=== PATIENT | male | born 1950 | race Caucasian/White ===

== ENCOUNTER → 2017-08-23 | Outpatient (CLI) | payer MEDICARE ==
[2017-08-23 11:16] LABS: Anion Gap 13 mmol/L; Blood Urea Nitrogen 17 mg/dL (9-20); Carbon Dioxide 26 mmol/L (22-30); Chloride 103 mmol/L (98-107); Potassium 5.1 mmol/L (3.5-5.1); Sodium 142 mmol/L (137-145)
[2017-08-23 11:34] LABS: HGB 13.6 gm/dL (13.0-17.5); MCH 32.6 pg (25.0-35.0); MCV 95.9 fL (80.0-100.0); Mean Platelet Volume 7.1; Platelet Count 221 k/uL (150-450); RBC 4.17 m/uL (4.30-5.90); RDW 14.2 % (11.5-15.5); WBC 8.1 k/uL (3.8-10.6)
== END | disposition home or self-care (01) ==
LOC: LABWHC1 10:41
PROVIDERS: ATTEND Internal Medicine Cardiovascular Disease
DX: Z01.812 Encounter for preprocedural laboratory examination (principal); I25.10 Atherosclerotic heart disease of native coronary artery without angina pectoris
CPT/HCPCS: 36415; 80051; 82565; 84520; 85027

== ENCOUNTER → 2017-10-08 | Outpatient (CLI) | payer MEDICARE ==
[2017-10-08 09:37] LABS: HGB 13.2 gm/dL (13.0-17.5); MCH 32.8 pg (25.0-35.0); MCHC 33.9 g/dL (31.0-37.0); MCV 96.6 fL (80.0-100.0); Mean Platelet Volume 7.3; Platelet Count 127 k/uL (150-450); RBC 4.04 m/uL (4.30-5.90); RDW 14.7 % (11.5-15.5); WBC 6.2 k/uL (3.8-10.6)
[2017-10-08 14:04] LABS: Anion Gap 12 mmol/L; Blood Urea Nitrogen 16 mg/dL (9-20); Calcium 9.1 mg/dL (8.4-10.2); Carbon Dioxide 25 mmol/L (22-30); Chloride 103 mmol/L (98-107); Glucose 174 mg/dL (74-99); Potassium 4.5 mmol/L (3.5-5.1); Sodium 140 mmol/L (137-145)
== END | disposition home or self-care (01) ==
LOC: LABWHC1 08:18
PROVIDERS: ATTEND Internal Medicine Clinical Cardiac Electrophysiology
DX: I48.1 Persistent atrial fibrillation (principal); I25.10 Atherosclerotic heart disease of native coronary artery without angina pectoris; I25.5 Ischemic cardiomyopathy
CPT/HCPCS: 36415; 80048; 85027

== ENCOUNTER → 2017-10-22 | Day surgery (SDC) | payer MEDICARE ==
[2017-10-18 14:55] VITALS: BMI 31.2
[~2017-10-22] MED LIST: LACTATED RINGERS 1,000 ML IV SCH; SODIUM CHLORIDE 0.9% 1,000 ML IV SCH
== END ==
LOC: CATHEP 06:07
PROVIDERS: ATTEND Internal Medicine Clinical Cardiac Electrophysiology
DX: I48.91 Unspecified atrial fibrillation (principal); Z53.8 Procedure and treatment not carried out for other reasons

== ENCOUNTER → 2017-12-24 | Outpatient (CLI) | payer MEDICARE ==
[2017-12-24 10:45] LABS: HCT 38.1 % (39.0-53.0); HGB 11.7 gm/dL (13.0-17.5); Hypochromasia Slight; MCHC 30.8 g/dL (31.0-37.0); MCV 97.4 fL (80.0-100.0); Mean Platelet Volume 6.7; Platelet Count 267 k/uL (150-450); RBC 3.91 m/uL (4.30-5.90); RDW 14.4 % (11.5-15.5); WBC 9.3 k/uL (3.8-10.6)
[2017-12-24 11:06] LABS: Anion Gap 10 mmol/L; Blood Urea Nitrogen 20 mg/dL (9-20); Carbon Dioxide 27 mmol/L (22-30); Chloride 105 mmol/L (98-107); Glucose 160 mg/dL (74-99); Potassium 4.6 mmol/L (3.5-5.1); Sodium 142 mmol/L (137-145)
== END | disposition home or self-care (01) ==
LOC: LABPAT 09:45
PROVIDERS: ATTEND Internal Medicine Clinical Cardiac Electrophysiology
DX: Z01.812 Encounter for preprocedural laboratory examination (principal); I11.0 Hypertensive heart disease with heart failure; I50.22 Chronic systolic (congestive) heart failure; I25.5 Ischemic cardiomyopathy; I48.1 Persistent atrial fibrillation
CPT/HCPCS: 36415; 80051; 82565; 82947; 84520; 85027

== ENCOUNTER 2018-01-02 06:08 | Day surgery (SDC) | payer MEDICARE ==
[2017-12-26 15:54] VITALS: BMI 32.0
[2018-01-02] MEDS ORDERED: fentaNYL (PF) 50 MCG/ML 2 ML AMP IV PRN (06:09)
[2018-01-02] MEDS ORDERED: SODIUM CHLORIDE 0.9% 1,000 ML IV SCH ×2 (06:09)
[2018-01-02] MEDS ORDERED: MIDAZOLAM 2 MG/2 ML VIAL IV PRN (06:09)
[2018-01-02] MEDS ORDERED: LACTATED RINGERS 1,000 ML IV SCH (06:09)
[2018-01-02] MEDS ORDERED: ceFAZolin 1,000 MG in SODIUM CHLORIDE 0.9% IRRIGATIO 250 ML IRRIGATION ONE (06:15)
[2018-01-02] MEDS ORDERED: ceFAZolin IN SWFI 2 GM/20 ML SYRINGE IVP ONE (06:15)
[2018-01-02 06:56] LABS: Glucose,Whole Blood 132 mg/dL (75-99)
[2018-01-02] MEDS ORDERED: SODIUM CHLORIDE 0.9% 500 ML IV ONE (07:29)
[2018-01-02] MEDS ORDERED: fentaNYL (PF) 50 MCG/ML 2 ML AMP ONE (07:30)
[2018-01-02] MEDS ORDERED: PROPOFOL 10 MG/ML 20 ML VIAL IV ONE (07:30)
[2018-01-02] MEDS ORDERED: PHENYLEPHRINE-0.9% NACL SYG 1 MG/10 ML SYRINGE ONE (07:30)
[2018-01-02] MEDS ORDERED: MIDAZOLAM 2 MG/2 ML VIAL ONE (07:30)
[2018-01-02] MEDS ORDERED: IOPAMIDOL-250 50ML BTL IV ONE (07:42)
[2018-01-02] MEDS ORDERED: LIDOCAINE 1% INJ 10MG/ML (20 ML MDV) ONE ×2 (07:48)
[2018-01-02] MEDS ORDERED: LIDOCAINE 1% INJ 10MG/ML (20 ML MDV) SQ ONE ×2 (08:10→08:15)
--- NOTE | 2018-01-02 11:06 | LTR ---
January 02, 2018 Re: Giuseppe Finnegan Dear Rafael: I had the pleasure of seeing Mr. Giuseppe Finnegan in electrophysiology followup. Mr. Finnegan underwent single-chamber ICD implantation for primary prevention of sudden cardiac . He will continue with his cardiac medications and we will see me in the device clinic in about 5 days post implant. Thank you for entrusting us in the care of your patient. Warm regards. Sincerely, MD ROBERT Freitas / DEANDRA: [id number] /
--- NOTE | 2018-01-02 11:06 | CE ---
CARDIAC ELECTROPHYSIOLOGY REPORT This is a 66-year-old male patient who has ischemic cardiomyopathy with severe LV dysfunction that has not improved following revascularization and medical treatment. Primary prevention ICD was implanted. Patient was brought to the EP lab in a fasting state. Written informed consent was obtained prior to the procedure. The left shoulder area was prepped and draped as per protocol and 1% lidocaine was used for local anesthesia. Subfascial pocket was made. Access was obtained. Hemostasis was assured. An ICD lead was placed in the right ventricle. Using the current protocol, the ICD lead ICD lead was placed using Mond stylet on the mid to high RV septum and screwed in. Pacing impedance 460 ohms, pacing threshold 0.5 V at 0.5 milliseconds. R-waves 33 mV. The 10 volt test negative. This was a [employer] model #7122Q, 58 cm in length and serial #[id number]. The generator implanted was a [employer] model # BT8521-03K, serial #[id number]. The lead and generator were then placed in the subfascial pocket. The wound was closed in 3 layers and dressed per protocol. RESULTS: Successful single-chamber ICD implantation for primary prevention of sudden cardiac in this patient with underlying ischemic cardiomyopathy and left ventricular ejection fraction of 35%. On guideline-directed medical treatment greater than 3 months post revascularization, underlying persistent atrial fibrillation and old myocardial infarction. ROBERT / VIANEYN: [id number] /
[2018-01-02] MEDS ORDERED: FUROSEMIDE 10 MG/ML 4 ML VIAL IV STA (12:05)
[2018-01-02] MEDS ORDERED: SPIRONOLACTONE 25 MG TAB PO STA (12:05)
[2018-01-02 13:40] LABS: Anion Gap 8 mmol/L; Blood Urea Nitrogen 19 mg/dL (9-20); Calcium 9.1 mg/dL (8.4-10.2); Carbon Dioxide 29 mmol/L (22-30); Chloride 102 mmol/L (98-107); Glucose 183 mg/dL (74-99); Potassium 4.2 mmol/L (3.5-5.1); Sodium 139 mmol/L (137-145)
[2018-01-02] MEDS ORDERED: HYDROcodone/APAP 5-325MG 1 EACH TAB PO PRN (14:16)
[2018-01-02] MEDS ORDERED: ACETAMINOPHEN TAB 325 MG TAB PO PRN (14:16)
[2018-01-02] MEDS ORDERED: ceFAZolin IN SWFI 2 GM/20 ML SYRINGE IVP SCH (14:30)
[2018-01-02] MEDS ORDERED: ACETAMINOPHEN IV (For NPO) 1,000 MG in EMPTY BAG 1 BAG IVPB ONE (15:00)
[2018-01-02] MEDS: ceFAZolin IN SWFI 2 GM/20 ML SYRINGE IVP SCH ×2 (15:03→20:47)
[2018-01-02 17:11] LABS: Glucose,Whole Blood 231 mg/dL (75-99)
[2018-01-02] MEDS ORDERED: RIVAROXABAN 15 MG TAB PO SCH (17:30)
[2018-01-02] MEDS ORDERED: INSULIN ASPART 100 UNIT/ML 1 ML 10 ML VIAL SQ SCH (17:30)
[2018-01-02] MEDS: CARVEDILOL 12.5 MG TAB PO SCH (18:15)
[2018-01-02 20:21] LABS: Glucose,Whole Blood 125 mg/dL (75-99)
[2018-01-02] MEDS: metFORMIN 500 MG TAB PO SCH (20:25)
[2018-01-02] MEDS ORDERED: ATORVASTATIN 80 MG TAB PO SCH (21:00)
[2018-01-03] MEDS: ceFAZolin IN SWFI 2 GM/20 ML SYRINGE IVP SCH ×2 (02:08→08:49)
[2018-01-03 05:54] LABS: Sodium 139 mmol/L (137-145)
[2018-01-03 05:55] LABS: Anion Gap 8 mmol/L; Blood Urea Nitrogen 20 mg/dL (9-20); Carbon Dioxide 27 mmol/L (22-30); Chloride 104 mmol/L (98-107); Cholesterol 68 mg/dL (<200); Glucose 152 mg/dL (74-99); HDL Cholesterol 21 mg/dL (40-60); LDL Cholesterol,Calculated 26 mg/dL (0-99); Potassium 4.2 mmol/L (3.5-5.1); Triglycerides 105 mg/dL (<150)
--- NOTE | 2018-01-03 06:46 | XR ---
EXAMINATION TYPE: XR chest 2V DATE OF EXAM: 01/03/2018 COMPARISON: NONE HISTORY: Lead placement check after pacemaker placement for arrhythmia. TECHNIQUE: Frontal and lateral views of the chest are obtained. FINDINGS: There is single lead pacemaker/AICD terminating in right ventricle. There is no focal air s pace opacity or pneumothorax seen. Tiny bilateral pleural effusions are present with blunting of post erior costophrenic angles. The cardiac silhouette size is upper limits of normal. The osseous stru ctures are intact. IMPRESSION: No evidence of complication related to pacemaker/AICD placement. Tiny bilateral pleural effusions are noted.
[2018-01-03 06:47] LABS: Glucose,Whole Blood 175 mg/dL (75-99)
[2018-01-03] MEDS ORDERED: INSULIN ASPART 100 UNIT/ML 1 ML 10 ML VIAL SQ SCH (07:30)
[2018-01-03 07:41] VITALS: RESP 16
--- NOTE | 2018-01-03 08:15 | P.DS ---
Providers Attending physician: Harrison Rivera Primary care physician: [facility] Course: Patient is doing well from a cardiac standpoint he developed bruising and bleeding under the dressing. A pressure dressing was applied to this morning there was a collection of blood under his dressing at this collection seemed to be originating from just under the skin, some epidermal was. Pressure application was effective. There was no pocket hematoma Continue pressure dressing was applied under full sterile precautions He denies any chest discomfort dizziness lightheadedness Yesterday I started Lasix IV and he is now received another dose today and then increase the dose of Lasix to 40 mrem by mouth twice a day. Aldactone 25 was started yesterday and I'm increasing the dose today to 50 g by mouth daily since his potassium is normal and renal function is normal On statins his LDL is 26 total cholesterol 68 triglycerides 105 HDL 21 Renal function creatinine 0.98 potassium 4.2 Impression Ischemic cardiomyopathy with CHF acute on chronic requiring IV Lasix. Yesterday he had JVD as well as lower extremity edema but no orthopnea. Status post single chamber ICD Persistent atrial fibrillation CAD status post cardiac stenting [Ejection fraction less than 35% despite medical treatment Status post single chamber ICD implant for primary prevention of SCD Suggest Increase the dose of Lasix by mouth to 40 mg twice daily Add Aldactone 50 mg daily And consider switching from eliu inhibitors to ENTRESTO as an outpatient Follow-up on Saturday morning in the device clinic for wound check Device interrogation this morning shows RV pacing threshold 0.5 V at 0.5 ms, R waves of greater than 12 mV pacing impedance of 460 ohms high-voltage impedance of 53 ohms Normal device function Patient Condition at Discharge: Stable Plan - Discharge Summary Discharge Rx Participant: No New Discharge Prescriptions: New Furosemide [Lasix] 40 mg PO BID #180 tablet Spironolactone 50 mg PO DAILY #90 tablet Continue Carvedilol [Coreg] 12.5 mg PO BID Cholecalciferol [Vitamin D3] 3,000 units PO QAM Insulin Aspart [NovoLOG Flexpen] 10 unit SQ AC-BRKFST Insulin Aspart [NovoLOG Flexpen] 10 unit SQ AC-SUPPER Insulin Glargine,Hum.rec.anlog [Basaglar Kwikpen U-100] 50 unit SQ AC-BRKFST Isosorbide Mononitrate [Isosorbide Mononitrate ER] 30 mg PO QAM Lisinopril [Zestril] 20 mg PO QAM Atorvastatin [Lipitor] 80 mg PO HS #30 tab Nitroglycerin Sl Tabs [Nitrostat] 0.4 mg SUBLINGUAL Q5M PRN #25 tab PRN Reason: Chest Pain Rivaroxaban [Xarelto] 15 mg PO W/SUPPER #30 tab metFORMIN HCL 1,000 mg PO BID #0 Clopidogrel [Plavix] 75 mg PO QAM Discontinued Furosemide [Lasix] 20 mg PO BID Discharge Medication List Carvedilol [Coreg] 12.5 mg PO BID 08/23/17 [History] Cholecalciferol [Vitamin D3] 3,000 units PO QAM 08/23/17 [History] Insulin Aspart [NovoLOG Flexpen] 10 unit SQ AC-BRKFST 08/23/17 [History] Insulin Aspart [NovoLOG Flexpen] 10 unit SQ AC-SUPPER 08/23/17 [History] Insulin Glargine,Hum.rec.anlog [Basaglar Kwikpen U-100] 50 unit SQ AC-BRKFST [History] Isosorbide Mononitrate [Isosorbide Mononitrate ER] 30 mg PO QAM 08/23/17 [ History] Lisinopril [Zestril] 20 mg PO QAM 08/23/17 [History] Atorvastatin [Lipitor] 80 mg PO HS #30 tab 08/27/17 [Rx] Nitroglycerin Sl Tabs [Nitrostat] 0.4 mg SUBLINGUAL Q5M PRN #25 tab 08/27/17 [Rx ] Rivaroxaban [Xarelto] 15 mg PO W/SUPPER #30 tab 08/27/17 [Rx] metFORMIN HCL 1,000 mg PO BID #0 08/27/17 [Rx] Clopidogrel [Plavix] 75 mg PO QAM 10/18/17 [History] Furosemide [Lasix] 40 mg PO BID #180 tablet 01/02/18 [Rx] Spironolactone 50 mg PO DAILY #90 tablet 01/03/18 [Rx] Follow up Appointment(s)/Referral(s): Harrison Rivera MD [STAFF PHYSICIAN] - (Device clinic in [address] Clay follow-up in 3 months Appointment made for Device check on at 3:00 pm.) Activity/Diet/Wound Care/Special Instructions: PATIENT EDUCATION MATERIAL Instructions following a heart rhythm device implant. 1. Keep dressing DRY for 5 DAYS. You may cover the area with Saran or Cling Wrap, prior to a shower. 2. The dressing will be removed in the Device Clinic at [facility]. Absorbable sutures were used to close the wound. 3. Avoid raising the left arm above the shoulder level. 4 week restriction 4. Avoid arm movements, like backscratching, rubbing the head, or pulling on a cord. 4 weeks restriction 5. Gentle range of motion movements of the shoulder, closest to the incision should be performed to avoid a frozen shoulder. (Pendulum exercises of the shoulder) 6. The opposite arm may be used freely. 7. Avoid driving for 7 days. 8. Avoid activities such as golfing, swimming, weed whacking, lifting more than 10 pounds weight, bowling, gymnastics and weight training/lifting. (6 weeks restriction) 9. Activities such as wood chopping with an axe, pull-ups in the gymnasium, power lifting, arc-welding, being close to home induction cooktops will always be a problem. 10. Arm sling is only a reminder not to raise the arm above the head. You do not need to keep the arm completely immobilized. Your free to move the arm and use it and for normal activities. In case of any problems, please call [facility], June Gary, @ [phone], Attention: Device Clinic Device clinic follow-up in 5 days Follow-up with primary note teller in 3 months Increase Lasix to 40 mrem twice daily, 8 AM to p.m. dosing Start spironolactone 50 g by mouth daily Hold xarelto till Saturday Device clinic in the morning on Saturday Discharge Disposition: HOME SELF-CARE
[2018-01-03] MEDS: CARVEDILOL 12.5 MG TAB PO SCH (08:48)
[2018-01-03] MEDS: metFORMIN 500 MG TAB PO SCH (08:48)
[2018-01-03] MEDS ORDERED: FUROSEMIDE 10 MG/ML 4 ML VIAL IV SCH (09:00)
[2018-01-03] MEDS ORDERED: SPIRONOLACTONE 25 MG TAB PO SCH (09:00)
[2018-01-03] MEDS ORDERED: LISINOPRIL 20 MG TAB PO SCH (09:00)
[2018-01-03] MEDS ORDERED: ISOSORBIDE MONONITRATE ER 30 MG TAB.ER.24H PO SCH (09:00)
[2018-01-03] MEDS ORDERED: CLOPIDOGREL 75 MG TAB PO SCH (09:00)
[2018-01-03 11:36] VITALS: BP 102/66
[2018-01-03 12:32] LABS: Glucose,Whole Blood 123 mg/dL (75-99)
[2018-01-03 16:14] VITALS: PULSE 68; TEMP 97.7
== END 2018-01-03 17:10 | disposition home or self-care (01) ==
LOC: CATHEP 06:08 → 3OBS 13:24 → CATHEP 01-03 17:10
PROVIDERS: ATTEND Internal Medicine Clinical Cardiac Electrophysiology
DX: I25.5 Ischemic cardiomyopathy (principal); I48.1 Persistent atrial fibrillation; Z00.6 Encounter for examination for normal comparison and control in clinical research program; I25.10 Atherosclerotic heart disease of native coronary artery without angina pectoris; I11.0 Hypertensive heart disease with heart failure; I50.22 Chronic systolic (congestive) heart failure; Z95.5 Presence of coronary angioplasty implant and graft; F17.210 Nicotine dependence, cigarettes, uncomplicated; E11.9 Type 2 diabetes mellitus without complications; Z79.4 Long term (current) use of insulin; E78.5 Hyperlipidemia, unspecified; Z82.49 Family history of ischemic heart disease and other diseases of the circulatory system; Z79.899 Other long term (current) drug therapy
CPT/HCPCS: 33249; 80048 ×2; 80061; 71046; C1769 ×2; C1892; C1777; C1722; J2250; J1940 ×2; J0690 ×3; J2001; J3010; J2370; J2704; Q9966

== ENCOUNTER → 2018-03-31 | Outpatient (CLI) | payer MEDICARE ==
[2018-03-31 11:41] LABS: Anisocytosis Slight; HCT 35.6 % (39.0-53.0); HGB 11.7 gm/dL (13.0-17.5); MCH 31.9 pg (25.0-35.0); MCHC 32.9 g/dL (31.0-37.0); MCV 96.9 fL (80.0-100.0); Macrocytosis Slight; Mean Platelet Volume 7.2; Platelet Count 206 k/uL (150-450); RBC 3.67 m/uL (4.30-5.90); RDW 16.4 % (11.5-15.5); WBC 8.5 k/uL (3.8-10.6)
[2018-03-31 11:53] LABS: Albumin 4.3 g/dL (3.5-5.0); Calcium 9.7 mg/dL (8.4-10.2); Potassium 5.3 mmol/L (3.5-5.1); Total Bilirubin 0.9 mg/dL (0.2-1.3); Total Protein 7.3 g/dL (6.3-8.2)
== END | disposition home or self-care (01) ==
LOC: LABPAT 10:17
PROVIDERS: ATTEND Internal Medicine Clinical Cardiac Electrophysiology
DX: Z01.812 Encounter for preprocedural laboratory examination (principal); I25.5 Ischemic cardiomyopathy; I48.2 Chronic atrial fibrillation
CPT/HCPCS: 80053; 84443; 85027

== ENCOUNTER → 2018-04-07 | Day surgery (SDC) | payer MEDICARE ==
[2018-04-04 10:06] VITALS: BMI 31.2
[~2018-04-07] MED LIST changes: -LACTATED RINGERS 1,000 ML IV SCH; +MIDAZOLAM 2 MG/2 ML VIAL ONE; +PROPOFOL 10 MG/ML 20 ML VIAL IV ONE; +SODIUM CHLORIDE 0.9% 500 ML 500 ML IV ONE
[2018-04-07 06:36] LABS: Glucose,Whole Blood 194 mg/dL (75-99)
[2018-04-07 06:46] VITALS: RESP 16; TEMP 97.7
--- NOTE | 2018-04-07 08:15 | P.HPCAR ---
History of Present Illness Patient underwent ICD testing. DFT elevated at 20 J Atrial fibrillation RVR Intolerant of heart failure medications with drop in blood pressure Electrically carpeted sinus rhythm Start Prolixin 25 mg by mouth daily in the morning Later blood pressure control rated start losartan 25 mg daily in the evening Amiodarone 400 mg for a month and then 200 mg thereafter and then subsequently 100 mg by mouth daily Continue xarelto Today I will check his Lipid panel TSH CMP I will see him in the office in about 2 months. Follow up Holter monitor prior to that ICD clinic 4 months Physical Exam Vitals: Vital Signs Temp Pulse Resp BP Pulse Ox 04/07/18 06:44 97.7 F 85 16 121/82 99 Intake and Output 04/06/18 04/07/18 04/07/18 22:59 06:59 14:59 Intake Total 20 205 Balance 20 205 Intake: IV 20 205 Past Medical History Past Medical History: Atrial Fibrillation, Heart Failure, Diabetes Mellitus, Hyperlipidemia, Hypertension, Myocardial Infarction ([place]) Additional Past Medical History / Comment(s): SEE CARDIOLOGY H & P. Last Myocardial Infarction Date:: 2002 History of Any Multi-Drug Resistant Organisms: None Reported Past Surgical History: AICD, Heart Catheterization With Stent Additional Past Surgical History / Comment(s): 2 cardiac stents placed in approx. 2002 and replaced 07/2017., AICD -(ST TYRA 12/2017) Past Anesthesia/Blood Transfusion Reactions: No Reported Reaction Additional Past Anesthesia/Blood Transfusion Reaction / Comment(s): HAS NEVER HAD GENERAL ANESTHESIA. Date of Last Stent Placement:: 07/2017 Type of Cardiac Device: AICD Device Placement Date:: 12/2017 Past Psychological History: No Psychological Hx Reported Additional Psychological History / Comment(s): SEASONAL AFFECTIVE DISORDER (SAD) . HISTORY OF DEPRESSION, 2009 (HAD LOST HIS JOB). Smoking Status: Former smoker Past Alcohol Use History: Rare Additional Past Alcohol Use History / Comment(s): SMOKED FOR 45 YRS, 2 PPD, QUIT IN 2002. Past Drug Use History: None Reported - Past Family History Mother Family Medical History: No Reported History Physical Examination Vital Signs Temp Pulse Resp BP Pulse Ox 04/07/18 06:44 97.7 F 85 16 121/82 99 Intake and Output 04/06/18 04/07/18 04/07/18 22:59 06:59 14:59 Intake Total 20 205 Balance 20 205 Intake: IV 20 205 Results Intake and Output 04/06/18 04/07/18 04/07/18 22:59 06:59 14:59 Intake Total Balance Intake: IV
[2018-04-07 09:08] LABS: Albumin 3.8 g/dL (3.5-5.0); Calcium 9.2 mg/dL (8.4-10.2); Potassium 4.4 mmol/L (3.5-5.1); Total Bilirubin 0.9 mg/dL (0.2-1.3); Total Protein 6.9 g/dL (6.3-8.2)
[2018-04-07 09:14] VITALS: BP 116/72; PULSE 81
--- NOTE | 2018-04-07 10:56 | PCN ---
PROCEDURE NOTE A 67-year-old male patient who has severe ischemic cardiomyopathy, congestive heart failure, atrial fibrillation, intolerant of his medications on account of low blood pressure. He was brought in for DFT testing under anesthesia as well as an electrical cardioversion for atrial fibrillation. He is on Xarelto. Cinefluoroscopy of the leads was first performed and the single-chamber ICD lead implanted in the mid to high RV septum was in stable position. No fractures or breaks. ICD interrogation was programmed. The ICD was reprogrammed. DFT testing was performed, defibrillation level testing was performed, shock and T-wave programmed study. DC fibber shock was used to induce ventricular fibrillation. This was adequately and appropriately detected at least sensitivity with 1 dropout. A 10 joule shock was unsuccessful. A 20 joule shock was successful. First charge 1.9 seconds, Second shock 4.0 seconds, shock impedance 59 ohms. No post shock noise. The patient remained in atrial fibrillation and therefore a 360 joule biphasic shock in the anteroapical configuration was performed, successful cardioversion was performed. The patient went to sinus rhythm, normal ND interval. Prior to that he was in atrial fibrillation with RVR between 100-120 ppm at rest. The ICD was then reprogrammed accordingly with the first cardioversion at 20 joules, first defibrillation at 30 joules, appropriate antitachycardia pacing, mid-LAD programming. The three month followup thresholds were as follows. Ventricular pacing threshold 0.5 V at 0.5 milliseconds, R-waves 11.9 mV. Pacing impedance 410 ohms, shock impedance of 57 ohms. RESULT: 1. DFT between 11 and 20 joules. A 20 joule shock was successful. Ten joule shock was unsuccessful. 2. Excellent fluoroscopy revealed stable RV lead position. 3. Atrial fibrillation with RVR, status post electrical cardioversion today to sinus rhythm. 4. ICD interrogated and reprogrammed accordingly. PLAN: 1. Continue diabetes medications. 2. Continue with heart failure medication and continue Xarelto. Start amiodarone 200 mg p.o. daily. 3. Start metoprolol succinate 25 mg p.o. daily and based upon his response, then we will restart him again on his VALENTIN inhibitors. Please note, the patient is intolerant of heart failure medications and had to stop them because of low blood pressure. MMODL / IJN: [id number] /
== END ==
LOC: CATHEP 05:41
PROVIDERS: ATTEND Internal Medicine Clinical Cardiac Electrophysiology
DX: I25.5 Ischemic cardiomyopathy (principal); I48.2 Chronic atrial fibrillation; I95.2 Hypotension due to drugs; I11.0 Hypertensive heart disease with heart failure; I50.22 Chronic systolic (congestive) heart failure; I25.10 Atherosclerotic heart disease of native coronary artery without angina pectoris; E13.9 Other specified diabetes mellitus without complications; E78.5 Hyperlipidemia, unspecified; I08.1 Rheumatic disorders of both mitral and tricuspid valves; F17.210 Nicotine dependence, cigarettes, uncomplicated; Z95.5 Presence of coronary angioplasty implant and graft; Z79.01 Long term (current) use of anticoagulants; Z79.02 Long term (current) use of antithrombotics/antiplatelets; Z79.4 Long term (current) use of insulin; Z79.899 Other long term (current) drug therapy; Z95.810 Presence of automatic (implantable) cardiac defibrillator; Z82.49 Family history of ischemic heart disease and other diseases of the circulatory system
CPT/HCPCS: 93642; 76000; 80061; 80053; 84443; J2250; J2704

== ENCOUNTER 2023-04-10 11:56 | Emergency (ER) | payer MEDICARE ==
--- NOTE | 2023-04-10 13:07 | ED ---
General Adult HPI - General Chief complaint: Extremity Injury, Lower Stated complaint: right groin pain Time Seen by Provider: 04/10/23 12:30 Source: patient, RN notes reviewed, old records reviewed Mode of arrival: ambulatory Limitations: no limitations - History of Present Illness Initial comments: This is a 72-year-old male who comes in complaining of proximal anterior left thigh discomfort with movement. Patient states his been ongoing for 2 months. Patient states there is a little bit swollen to. Patient states if he flexes his hip that's when the pain occurs. Patient does not remember any injury. Patient states he is on blood thinners. Patient is able to function with this but it's sore and it is not getting better so he decided to have it checked out. Patient did go to urgent care first and they recommended he come to the emergency department - Related Data Home Medications Medication Instructions Recorded Confirmed Cholecalciferol [Vitamin D3 (25 2,000 units PO QAM 08/23/17 04/07/18 Mcg = 1000 Iu)] Insulin Aspart [NovoLOG Flexpen] 10 unit SQ AC-BRKFST 08/23/17 04/07/18 Insulin Aspart [NovoLOG Flexpen] 10 unit SQ AC-SUPPER 08/23/17 04/07/18 Insulin Glargine,Hum.rec.anlog 50 unit SQ HS 08/23/17 04/07/18 [Basaglar Kwikpen U-100] Clopidogrel [Plavix] 75 mg PO QAM 10/18/17 04/07/18 Cyanocobalamin [Vitamin B-12] 500 mcg PO DAILY 04/04/18 04/07/18 Furosemide [Lasix] 40 mg PO DAILY 04/04/18 04/07/18 Pioglitazone [Actos] 15 mg PO W/SUPPER 04/04/18 04/07/18 metFORMIN HCL [Glucophage] 1,000 mg PO BID-W/MEALS 04/04/18 04/07/18 Previous Rx's Medication Instructions Recorded Atorvastatin [Lipitor] 80 mg PO HS #30 tab 08/27/17 Rivaroxaban [Xarelto] 15 mg PO W/SUPPER #30 tab 08/27/17 Amiodarone [Cordarone] 400 mg PO DAILY #90 tablet 04/07/18 Metoprolol Succinate [Kapspargo 25 mg PO DAILY #90 cap.spr.24 04/07/18 Sprinkle] Ibuprofen [Motrin] 600 mg PO Q6HR PRN #20 tab 04/10/23 Allergies Allergy/AdvReac Type Severity Reaction Status Date / Time No Known Allergies Allergy Verified 04/10/23 12:21 Review of Systems ROS Statement: Those systems with pertinent positive or pertinent negative responses have been documented in the HPI. ROS Other: All systems not noted in ROS Statement are negative. Past Medical History Past Medical History: Atrial Fibrillation, Heart Failure, Diabetes Mellitus, Hyperlipidemia, Hypertension, Myocardial Infarction ([place]) Additional Past Medical History / Comment(s): SOB, edema. Last Myocardial Infarction Date:: 2002 History of Any Multi-Drug Resistant Organisms: None Reported Past Surgical History: Heart Catheterization With Stent Additional Past Surgical History / Comment(s): 2 cardiac stents placed in approx. 2002 and replaced 07/2017. Past Anesthesia/Blood Transfusion Reactions: No Reported Reaction Additional Past Anesthesia/Blood Transfusion Reaction / Comment(s): HAS NEVER HAD GENERAL ANESTHESIA. Date of Last Stent Placement:: 2002 Type of Cardiac Device: Permanent Pacemaker Past Psychological History: No Psychological Hx Reported Smoking Status: Former smoker Past Alcohol Use History: Rare Past Drug Use History: None Reported - Past Family History Mother Family Medical History: No Reported History General Exam - General Exam Comments Initial Comments: GENERAL Patient is well-developed and well-nourished. Patient is in mild distress. EYES Patient's pupils are equal and round. Extraocular motion is intact SKIN Unremarkable NEURO The patient is alert and oriented 3 PYSCH Patient has normal interpersonal interactions. MUSCULOSKELETAL She has an area of proximal anterior swelling to the thigh is mildly tender to touch. There is no discoloration no redness no ecchymosis Limitations: no limitations Course Vital Signs 04/10/23 12:18 Temperature 98.2 F Pulse Rate 77 Respiratory 18 Rate Blood Pressure 107/67 O2 Sat by Pulse 98 Oximetry Medical Decision Making - Medical Decision Making Was pt. sent in by a medical professional or institution (, PA, [employer], urgent care, hospital, or long term...) When possible be specific @ -Patient was sent in by urgent care Did you speak to anyone other than the patient for history (EMS, parent, family, police, friend...)? What history was obtained from this source @ -No Did you review nursing and triage notes (agree or disagree)? Why? @ -I reviewed and agree with nursing and triage notes Were old charts reviewed (outside hosp., previous admission, EMS record, old EKG, old radiological studies, urgent care reports/EKG's, long term records)? Report findings @ -No old charts were reviewed Differential Diagnosis (chest pain, altered mental status, abdominal pain women, abdominal pain men, vaginal bleeding, weakness, fever, dyspnea, syncope, headache, dizziness, GI bleed, back pain, seizure, CVA, palpatations, mental health, musculoskeletal)? @ -Differential Musculoskeletal Muscular strain, contusion, ligament sprain, fracture, arthritis, septic arthritis, bursitis, cellulitis, muscle spasm, nerve compression, DVT, arterial occlusion, herpes zoster, electrolyte abnormality, tumor.... This is not meant to be in all inclusive list EKG interpreted by me (3pts min.). @ -As above X-rays interpreted by me (1pt min.). @ -None done CT interpreted by me (1pt min.). @ -None done U/S interpreted by me (1pt. min.). @ -Ultrasound showed no hematoma did show a 2 cm lymph node that was a little larger than expected What testing was considered but not performed or refused? (CT, X-rays, U/S, labs)? Why? @ -None What meds were considered but not given or refused? Why? @ -None Did you discuss the management of the patient with other professionals (professionals i.e. , PA, [employer], lab, RT, psych nurse, social media marketer, banquet houseperson, teacher, banking services officer, hospice case manager)? Give summary @ -No Was smoking cessation discussed for >3mins.? @ -No Was critical care preformed (if so, how long)? @ -No Were there social determinants of health that impacted care today? How? (Homelessness, low income, unemployed, alcoholism, drug addiction, transportation, low edu. Level, literacy, decrease access to med. care, residential, rehab)? @ -No Was there de-escalation of care discussed even if they declined (Discuss DNR or withdrawal of care, Hospice)? DNR status @ -No What co-morbidities impacted this encounter? (DM, HTN, Smoking, COPD, CAD, Cancer, CVA, ARF, Chemo, Hep., AIDS, mental health diagnosis, sleep apnea, morbid obesity)? @ -None Was patient admitted / discharged? Hospital course, mention meds given and route, prescriptions, significant lab abnormalities, going to OR and other pertinent info. @ -Patient's ultrasound showed no mass or hematoma. I believe this to be a musculoskeletal issue probably muscular strain patient was in agreement that he will try Motrin. Undiagnosed new problem with uncertain prognosis? @ -No Drug Therapy requiring intensive monitoring for toxicity (Heparin, Nitro, Insulin, Cardizem)? @ -No Were any procedures done? @ -No Diagnosis/symptom? @ -Muscular strain Acute, or Chronic, or Acute on Chronic? @ -Acute Uncomplicated (without systemic symptoms) or Complicated (systemic symptoms)? @ -Uncomplicated Side effects of treatment? @ -No Exacerbation, Progression, or Severe Exacerbation? @ -No Poses a threat to life or bodily function? How? (Chest pain, [place], [place], pneumonia, PE, COPD, DKA, ARF, appy, cholecystitis, CVA, Diverticulitis, Homicidal, Suicidal, threat to staff... and all critical care pts) @ -No Disposition Clinical Impression: Muscle strain of right thigh Disposition: HOME SELF-CARE Condition: Good Instructions (If sedation given, give patient instructions): Muscle Strain (ED) Prescriptions: Ibuprofen [Motrin] 600 mg PO Q6HR PRN #20 tab PRN Reason: For pain Is patient prescribed a controlled substance at d/c from ED?: No Referrals: Rafael Rodriguez MD [Primary Care Provider] - 1-2 days Time of Disposition: 15:11
--- NOTE | 2023-04-10 14:46 | US ---
EXAMINATION TYPE: US extremity nonvasc mass RT DATE OF EXAM: 04/10/2023 COMPARISON: NONE CLINICAL INDICATION: Male, 72 years old with history of Hematoma; Edema and pain right groin/upper th igh for 2 weeks, rule out hematoma TECHNIQUE: FINDINGS: Scanned within patient's area of concern, right groin/upper thigh. no evidence of fluid co llection at this time. lymph node visualized = 2.0 x 0.8 x 1.7cm No suspicious fluid collections evident. No soft tissue abnormality identified. IMPRESSION: 1. There is a prominent right inguinal lymph node measuring 1.7 x 2.0 x 0.8 cm. Cortex appears normal .
[2023-04-10 15:28] VITALS: BP 101/68; PULSE 72; RESP 16; TEMP 98.3
== END 2023-04-10 15:30 | disposition home or self-care (01) ==
LOC: EC 11:56
DX: S76.911A Strain of unspecified muscles, fascia and tendons at thigh level, right thigh, initial encounter (principal); I11.0 Hypertensive heart disease with heart failure; I25.2 Old myocardial infarction; E11.9 Type 2 diabetes mellitus without complications; I48.91 Unspecified atrial fibrillation; I50.9 Heart failure, unspecified; Z79.01 Long term (current) use of anticoagulants; Z79.02 Long term (current) use of antithrombotics/antiplatelets; Z79.84 Long term (current) use of oral hypoglycemic drugs; Z79.4 Long term (current) use of insulin; Z79.899 Other long term (current) drug therapy; Z87.891 Personal history of nicotine dependence; Z95.5 Presence of coronary angioplasty implant and graft; X58.XXXA Exposure to other specified factors, initial encounter
CPT/HCPCS: 99283

== ENCOUNTER → 2023-05-06 | Outpatient (CLI) | payer MEDICARE ==
[2023-05-06 16:00] LABS: African American GFR (CKD) 57 (>60 ml/min/1.73 sqM); Blood Urea Nitrogen 35 mg/dL (9-20); Non-African American GFR(CKD) 49 (>60 ml/min/1.73 sqM)
--- NOTE | 2023-05-07 13:27 | CT ---
EXAMINATION TYPE: CT abdomen pelvis w con DATE OF EXAM: 05/06/2023 COMPARISON: None INDICATION: c/o body aches DLP: 2266.8 mGycm, Automated exposure control for dose reduction was used. CONTRAST: 80 cc mL of Isovue 300. Study performed with Oral Contrast TECHNIQUE: Axial images were obtained from above the diaphragm to the pubic rami in the axial plane a t 5 mm thick sections. Reconstructed images are reviewed on the computer in the coronal plane. FINDINGS: Limited CT sections are obtained the lung bases. The lung bases are clear. CT ABDOMEN: Liver: There is mild fatty infiltration of the liver. Spleen: Normal Pancreas: Normal Adrenal glands: The adrenal glands are normal. Gallbladder: Normal Kidneys: No masses are evident. No hydronephrosis is present. Bilateral renal cysts are present de layed images were obtained through the kidneys. Aorta: Vascular calcification is within the aorta. Inferior vena cava: Normal. CT PELVIS: Loops of bowel within the abdomen and pelvis are normal. There are loops of bowel which are incom pletely distended or lack oral contrast limiting their evaluation. Appendix: Normal as visualized. Urinary bladder: Unremarkable Genitourinary structures: Prostate is prominent Osseous structures: No suspicious lytic or sclerotic lesions. IMPRESSION: 1. Bilateral renal cysts. 2. Mild fatty infiltration liver. 3. No acute abnormality.
== END | disposition home or self-care (01) ==
LOC: RADCTMAIN 15:17
PROVIDERS: ATTEND Surgery
DX: N28.1 Cyst of kidney, acquired (principal); K76.0 Fatty (change of) liver, not elsewhere classified
CPT/HCPCS: 82565; 84520; 74177; 36415; Q9967

== ENCOUNTER 2023-05-18 08:39 | Observation (INO) | payer MEDICARE ==
[2023-05-18] MEDS ORDERED: KETOROLAC 15 MG/ML 1 ML VIAL IVP STA (09:28)
[2023-05-18] MEDS ORDERED: HYDROmorphone 0.5 MG/0.5 ML SYRINGE IVP STA (09:28)
[2023-05-18 09:55] LABS: Basophils # (A) 0.1 k/uL (0-0.2); Basophils % (A) 0 %; Eosinophils # (A) 0.1 k/uL (0-0.7); Eosinophils % (A) 1 %; HCT 40.5 % (39.0-53.0); HGB 13.2 gm/dL (13.0-17.5); Lymphocytes # (A) 1.3 k/uL (1.0-4.8); Lymphocytes % (A) 9 %; MCH 31.4 pg (25.0-35.0); MCHC 32.6 g/dL (31.0-37.0); MCV 96.3 fL (80.0-100.0); Mean Platelet Volume 7.4; Monocytes % (A) 7 %; Neutrophils # (A) 11.9 k/uL (1.3-7.7); Neutrophils % (A) 82 %; Platelet Count 392 k/uL (150-450); RDW 14.1 % (11.5-15.5); WBC 14.5 k/uL (3.8-10.6)
[2023-05-18 10:18] LABS: ALT 27 U/L (4-49); AST 25 U/L (17-59); African American GFR (CKD) 53 (>60 ml/min/1.73 sqM); Alkaline Phosphatase 79 U/L (38-126); Anion Gap 7 mmol/L; Blood Urea Nitrogen 31 mg/dL (9-20); Calcium 9.2 mg/dL (8.4-10.2); Carbon Dioxide 25 mmol/L (22-30); Chloride 106 mmol/L (98-107); Glucose 124 mg/dL (74-99); Non-African American GFR(CKD) 46 (>60 ml/min/1.73 sqM); Potassium 5.4 mmol/L (3.5-5.1); Sodium 138 mmol/L (137-145); Total Bilirubin 1.1 mg/dL (0.2-1.3); Total Protein 7.2 g/dL (6.3-8.2)
[2023-05-18 10:20] LABS: Albumin 3.6 g/dL (3.5-5.0)
--- NOTE | 2023-05-18 10:26 | ED ---
Extremity Problem HPI - General Chief complaint: Extremity Problem,Nontraumatic Stated complaint: Body aches Time Seen by Provider: 05/18/23 08:50 Source: patient, family, RN notes reviewed, old records reviewed Mode of arrival: wheelchair Limitations: no limitations - History of Present Illness Initial comments: This is a 72-year-old male who presents emergency Department complaining that for 8 weeks she's been having more more joint pain to the point now where he can barely walk any recent severe pain. Patient states she's followed up with his primary medical care doctor and a surgeon. Patient's CT of the abdomen and pelvis showed no abnormality. Patient states since that time the pain is been getting progressively worse. Patient denies any fever or chills. Patient denies any chest pain or difficulty breathing. Patient states he body aches started in the right hip moved to the left hip and now both elbows hurt severely. - Related Data Home Medications Medication Instructions Recorded Confirmed Cholecalciferol [Vitamin D3 (25 2,000 units PO QAM 08/23/17 04/07/18 Mcg = 1000 Iu)] Insulin Aspart [NovoLOG Flexpen] 10 unit SQ AC-BRKFST 08/23/17 04/07/18 Insulin Aspart [NovoLOG Flexpen] 10 unit SQ AC-SUPPER 08/23/17 04/07/18 Insulin Glargine,Hum.rec.anlog 50 unit SQ HS 08/23/17 04/07/18 [Basaglar Kwikpen U-100] Clopidogrel [Plavix] 75 mg PO QAM 10/18/17 04/07/18 Cyanocobalamin [Vitamin B-12] 500 mcg PO DAILY 04/04/18 04/07/18 Furosemide [Lasix] 40 mg PO DAILY 04/04/18 04/07/18 Pioglitazone [Actos] 15 mg PO W/SUPPER 04/04/18 04/07/18 metFORMIN HCL [Glucophage] 1,000 mg PO BID-W/MEALS 04/04/18 04/07/18 Previous Rx's Medication Instructions Recorded Atorvastatin [Lipitor] 80 mg PO HS #30 tab 08/27/17 Rivaroxaban [Xarelto] 15 mg PO W/SUPPER #30 tab 08/27/17 Amiodarone [Cordarone] 400 mg PO DAILY #90 tablet 04/07/18 Metoprolol Succinate [Kapspargo 25 mg PO DAILY #90 cap.spr.24 04/07/18 Sprinkle] Ibuprofen [Motrin] 600 mg PO Q6HR PRN #20 tab 04/10/23 Allergies Allergy/AdvReac Type Severity Reaction Status Date / Time No Known Allergies Allergy Verified 05/18/23 08:48 Review of Systems ROS Statement: Those systems with pertinent positive or pertinent negative responses have been documented in the HPI. ROS Other: All systems not noted in ROS Statement are negative. Past Medical History Past Medical History: Atrial Fibrillation, Heart Failure, Diabetes Mellitus, Hyperlipidemia, Hypertension, Myocardial Infarction (SC) Additional Past Medical History / Comment(s): SOB, edema. Last Myocardial Infarction Date:: 2002 History of Any Multi-Drug Resistant Organisms: None Reported Past Surgical History: Heart Catheterization With Stent Additional Past Surgical History / Comment(s): 2 cardiac stents placed in approx. 2002 and replaced 07/2017. Past Anesthesia/Blood Transfusion Reactions: No Reported Reaction Additional Past Anesthesia/Blood Transfusion Reaction / Comment(s): HAS NEVER HAD GENERAL ANESTHESIA. Date of Last Stent Placement:: 2002 Type of Cardiac Device: Permanent Pacemaker Past Psychological History: No Psychological Hx Reported Smoking Status: Former smoker Past Alcohol Use History: Rare Past Drug Use History: None Reported - Past Family History Mother Family Medical History: No Reported History General Exam - General Exam Comments Initial Comments: GENERAL: Patient is well-developed and well-nourished. Patient is nontoxic and well- hydrated and is in moderate distress. ENT: Neck is soft and supple. No significant lymphadenopathy is noted. Oropharynx is clear. Moist mucous membranes. Neck has full range of motion without eliciting any pain. EYES: The sclera were anicteric and conjunctiva were pink and moist. Extraocular movements were intact and pupils were equal round and reactive to light. Eyelids were unremarkable. PULMONARY: Unlabored respirations. Good breath sounds bilaterally. No audible rales rhonchi or wheezing was noted. CARDIOVASCULAR: There is a regular rate and rhythm without any murmurs gallops or rubs. ABDOMEN: Soft and nontender with normal bowel sounds. SKIN: Skin is clear with no lesions or rashes and otherwise unremarkable. NEUROLOGIC: Patient is alert and oriented x3. Cranial nerves II through XII are grossly intact. Motor and sensory are also intact. Normal speech, volume and content. Symmetrical smile. MUSCULOSKELETAL: Normal extremities with adequate strength and full range of motion. Moving either hip causes some pain on the lateral aspect bilaterally LYMPHATICS: No significant lymphadenopathy is noted PSYCHIATRIC: Normal psychiatric evaluation. Limitations: no limitations Course Vital Signs 05/18/23 08:45 Temperature 97.7 F Pulse Rate 87 Respiratory 20 Rate Blood Pressure 143/81 O2 Sat by Pulse 99 Oximetry Medical Decision Making - Medical Decision Making EKG is interpreted by myself EKG shows A. fib at 80 beats a minute QRS is 142 QT intervals 43 QTC is 439. Patient's EKG shows no ST segment elevation or depression Was pt. sent in by a medical professional or institution (, PA, SHELL SORTER, urgent care, hospital, or half-way...) When possible be specific @ -No Did you speak to anyone other than the patient for history (EMS, parent, family, police, friend...)? What history was obtained from this source @ -No Did you review nursing and triage notes (agree or disagree)? Why? @ -I reviewed and agree with nursing and triage notes Were old charts reviewed (outside hosp., previous admission, EMS record, old EKG, old radiological studies, urgent care reports/EKG's, half-way records)? Report findings @ -I reviewed prior charts and prior lab work Differential Diagnosis (chest pain, altered mental status, abdominal pain women, abdominal pain men, vaginal bleeding, weakness, fever, dyspnea, syncope, headache, dizziness, GI bleed, back pain, seizure, CVA, palpatations, mental hea lth, musculoskeletal)? @ -Differential Musculoskeletal Muscular strain, contusion, ligament sprain, fracture, arthritis, septic arthritis, bursitis, cellulitis, muscle spasm, nerve compression, DVT, arterial occlusion, herpes zoster, electrolyte abnormality, tumor.... This is not meant to be in all inclusive list EKG interpreted by me (3pts min.). @ -As above X-rays interpreted by me (1pt min.). @ -None done CT interpreted by me (1pt min.). @ -None done U/S interpreted by me (1pt. min.). @ -None done What testing was considered but not performed or refused? (CT, X-rays, U/S, labs)? Why? @ -None What meds were considered but not given or refused? Why? @ -None Did you discuss the management of the patient with other professionals (professionals i.e. , PA, SHELL SORTER, lab, RT, psych nurse, long term care social worker, vice president planning, teacher, fisheries enforcement officer, manager case management)? Give summary @ -I spoke with [facility] agreed to admit the patient Was smoking cessation discussed for >3mins.? @ -No Was critical care preformed (if so, how long)? @ -No Were there social determinants of health that impacted care today? How? ( Homelessness, low income, unemployed, alcoholism, drug addiction, transportation, low edu. Level, literacy, decrease access to med. care, longterm, rehab)? @ -No Was there de-escalation of care discussed even if they declined (Discuss DNR or withdrawal of care, Hospice)? DNR status @ -No What co-morbidities impacted this encounter? (DM, HTN, Smoking, COPD, CAD, Cancer, CVA, ARF, Chemo, Hep., AIDS, mental health diagnosis, sleep apnea, morbid obesity)? @ -None Was patient admitted / discharged? Hospital course, mention meds given and route, prescriptions, significant lab abnormalities, going to OR and other pertinent info. @ -Patient received Toradol and Dilaudid and his pain was considerably better. Pain was initially 10 on a 10 was unable to walk now the pain is 5 out of 10. He spoke with [facility] they agreed to admit this patient. Undiagnosed new problem with uncertain prognosis? @ -No Drug Therapy requiring intensive monitoring for toxicity (Heparin, Nitro, Insulin, Cardizem)? @ -No Were any procedures done? @ -No Diagnosis/symptom? @ -Polymyalgia rheumatica Acute, or Chronic, or Acute on Chronic? @ -Yes Uncomplicated (without systemic symptoms) or Complicated (systemic symptoms)? @ -Complicated Side effects of treatment? @ -No Exacerbation, Progression, or Severe Exacerbation? @ -No Poses a threat to life or bodily function? How? (Chest pain, USA, SC, pneumonia, PE, COPD, DKA, ARF, appy, cholecystitis, CVA, Diverticulitis, Homicidal, Suicidal, threat to staff... and all critical care pts) @ -No - Lab Data Result diagrams: 05/18/23 09:39 05/18/23 09:39 Lab Results 05/18/23 05/18/2324 Range/Units 09:39 09:39 09:39 WBC 14.5 H (3.8-10.6) k/uL RBC 4.20 L (4.30-5.90) m/uL Hgb 13.2 (13.0-17.5) gm/dL Hct 40.5 (39.0-53.0) % MCV 96.3 (80.0-100.0) fL MCH 31.4 (25.0-35.0) pg MCHC 32.6 (31.0-37.0) g/dL RDW 14.1 (11.5-15.5) % Plt Count 392 (150-450) k/uL MPV 7.4 Neutrophils % 82 % Lymphocytes % 9 % Monocytes % 7 % Eosinophils % 1 % Basophils % 0 % Neutrophils # 11.9 H (1.3-7.7) k/uL Lymphocytes # 1.3 (1.0-4.8) k/uL Monocytes # 1.0 (0-1.0) k/uL Eosinophils # 0.1 (0-0.7) k/uL Basophils # 0.1 (0-0.2) k/uL Sodium 138 (137-145) mmol/L Potassium 5.4 H (3.5-5.1) mmol/L Chloride 106 (98-107) mmol/L Carbon Dioxide 25 (22-30) mmol/L Anion Gap 7 mmol/L BUN 31 H (9-20) mg/dL Creatinine 1.51 H (0.66-1.25) mg/dL Est GFR (CKD-EPI)AfAm 53 (>60 ml/min/1.73 sqM) Est GFR (CKD-EPI)NonAf 46 (>60 ml/min/1.73 sqM) Glucose 124 H (74-99) mg/dL Plasma Lactic Acid Andrzej (0.7-2.0) mmol/L Calcium 9.2 (8.4-10.2) mg/dL Magnesium 2.0 (1.6-2.3) mg/dL Total Bilirubin 1.1 (0.2-1.3) mg/dL AST 25 (17-59) U/L ALT 27 (4-49) U/L Alkaline Phosphatase 79 (38-126) U/L C-Reactive Protein 17.1 H (<1.0) mg/dL Total Protein 7.2 (6.3-8.2) g/dL Albumin 3.6 (3.5-5.0) g/dL Influenza Type A (PCR) Not Detected (Not Detectd) Influenza Type B (PCR) Not Detected (Not Detectd) RSV (PCR) Not Detected (Not Detectd) SARS-CoV-2 (PCR) Not Detected (Not Detectd) 05/18/23 Range/Units 09:39 WBC (3.8-10.6) k/uL RBC (4.30-5.90) m/uL Hgb (13.0-17.5) gm/dL Hct (39.0-53.0) % MCV (80.0-100.0) fL MCH (25.0-35.0) pg MCHC (31.0-37.0) g/dL RDW (11.5-15.5) % Plt Count (150-450) k/uL MPV Neutrophils % % Lymphocytes % % Monocytes % % Eosinophils % % Basophils % % Neutrophils # (1.3-7.7) k/uL Lymphocytes # (1.0-4.8) k/uL Monocytes # (0-1.0) k/uL Eosinophils # (0-0.7) k/uL Basophils # (0-0.2) k/uL Sodium (137-145) mmol/L Potassium (3.5-5.1) mmol/L Chloride (98-107) mmol/L Carbon Dioxide (22-30) mmol/L Anion Gap mmol/L BUN (9-20) mg/dL Creatinine (0.66-1.25) mg/dL Est GFR (CKD-EPI)AfAm (>60 ml/min/1.73 sqM) Est GFR (CKD-EPI)NonAf (>60 ml/min/1.73 sqM) Glucose (74-99) mg/dL Plasma Lactic Acid Andrzej 1.6 (0.7-2.0) mmol/L Calcium (8.4-10.2) mg/dL Magnesium (1.6-2.3) mg/dL Total Bilirubin (0.2-1.3) mg/dL AST (17-59) U/L ALT (4-49) U/L Alkaline Phosphatase (38-126) U/L C-Reactive Protein (<1.0) mg/dL Total Protein (6.3-8.2) g/dL Albumin (3.5-5.0) g/dL Influenza Type A (PCR) (Not Detectd) Influenza Type B (PCR) (Not Detectd) RSV (PCR) (Not Detectd) SARS-CoV-2 (PCR) (Not Detectd) Disposition Clinical Impression: Polymyalgia rheumatica Disposition: ADMITTED IP TO THIS HOSP Referrals: Allyson Salas [Primary Care Provider] - 1-2 days Time of Disposition: 11:35
[2023-05-18 10:41] LABS: C Reactive Protein 17.1 mg/dL (<1.0)
[2023-05-18] MEDS ORDERED: SODIUM CHLORIDE 0.9% 1,000 ML IV ONE (11:39)
[2023-05-18] MEDS ORDERED: bisacodyL 5 MG TABLET.DR PO PRN (13:45)
[2023-05-18] MEDS ORDERED: HYDROcodone/APAP 5-325MG 1 EACH TAB PO PRN (13:45)
[2023-05-18] MEDS ORDERED: ONDANSETRON 4 MG/2 ML VIAL IVP PRN (13:45)
[2023-05-18] MEDS ORDERED: HYDROmorphone 0.5 MG/0.5 ML SYRINGE IVP PRN (13:45)
[2023-05-18] MEDS ORDERED: NALOXONE 0.4 MG/ML 1 ML VIAL IV PRN (13:45)
[2023-05-18] MEDS ORDERED: ACETAMINOPHEN TAB 325 MG TAB PO PRN (13:45)
[2023-05-18] MEDS ORDERED: TEMAZEPAM 15 MG CAP PO PRN (13:45)
[2023-05-18] MEDS ORDERED: MAG HYDROX/AL HYDROX/SIMETH 30 ML CUP PO PRN (13:45)
[2023-05-18] MEDS ORDERED: CALCIUM CARBONATE 500 MG CHEWABLE PO PRN (13:45)
[2023-05-18] MEDS ORDERED: DOCUSATE 100 MG CAP PO PRN (13:45)
[2023-05-18] MEDS ORDERED: SODIUM CHLORIDE 0.9% 1,000 ML IV SCH (13:45)
[2023-05-18] MEDS ORDERED: DEXTROSE 50% SYRINGE 50 ML IVP PRN ×2 (14:00)
--- NOTE | 2023-05-18 14:08 | P.HPIM ---
History of Present Illness H&P Date: 05/18/23 History of present illness; patient 72 year old gentleman past medical history s ignificant for congestive heart failure, diabetes who presented to the ER because of increasing hip pains. Patient stated that he was all right 2 months ago when he started noticing right hip pain, initially right hip pain was bearable and patient was able to carry out his activities but later on he started noticing that the pain was moving down his hip. Denied any numbness of right thigh or leg. Denies any fecal incontinence. Later on patient started noticing pain in his left hip as well. Patient did follow up with his PCP and they ordered ultrasound of groin.Ultrasound groin done on 04/10/23 showed prominent right inguinal lymph node. Patient was followed up by PCP and they order CT abdominal and pelvis.CT abdominal and pelvis done on 05/06/23 showed bilateral renal cysts, no acute abdominal process. Patient and patient's noticed that the pain was involving both hips now and he was unable to carry out his normal activities. Patient stated that he was unable to walk much. Patient states that he was able to put weight on his LEGS. Patient unable to lift his legs above 45. Because of these symptoms came to the ER. Patient also stated that for the last few days he has been having pain in his right elbow as well, thinks it could be a muscular problem. Initial lab work done in the ER showed WBC 14.5, hemoglobin 13.2, platelet count 302, sodium 138, potassium 5.4, BUN 31, creatinine 1.51, glucose 124, CRP 17.1, Influenza A not detected Influenza B not detected RSV not detected COVID-19 not detected Patient admitted to internal medicine service REVIEW OF SYSTEMS: CONSTITUTIONAL: No fever, no malaise, no fatigue. HEENT: No recent visual problems or hearing problems. Denied any sore throat. CARDIOVASCULAR: No chest pain, orthopnea, PND, no palpitations, no syncope. PULMONARY: No shortness of breath, no cough, no hemoptysis. GASTROINTESTINAL: No diarrhea, no nausea, no vomiting, no abdominal pain. NEUROLOGICAL: No headaches, no weakness, no numbness. HEMATOLOGICAL: Denies any bleeding or petechiae. GENITOURINARY: Denies any burning micturition, frequency, or urgency. MUSCULOSKELETAL/RHEUMATOLOGICAL: Denies any joint pain, swelling, or any muscle pain. ENDOCRINE: Denies any polyuria or polydipsia. The rest of the 14-point review of systems is negative. PHYSICAL EXAMINATION: GENERAL: The patient is alert and oriented x3, not in any acute distress. Well developed, well nourished. HEENT: Pupils are round and equally reacting to light. EOMI. No scleral icterus. No conjunctival pallor. Normocephalic, atraumatic. No pharyngeal erythema. No thyromegaly. CARDIOVASCULAR: S1 and S2 present. No murmurs, rubs, or gallops. PULMONARY: Chest is clear to auscultation, no wheezing or crackles. ABDOMEN: Soft, nontender, nondistended, normoactive bowel sounds. No palpable organomegaly. MUSCULOSKELETAL: Reduced range of motion of right hip, no abduction or adduction. no swelling noticeable EXTREMITIES: No cyanosis, clubbing, or pedal edema. NEUROLOGICAL: Gross neurological examination did not reveal any focal deficits. SKIN: No rashes. Assessment and plan Bilateral hip pain Inability to ambulate Hyperkalemia Insulin-dependent diabetes mellitus Hyperlipidemia Hypertension Monitor vital signs Monitor CBC Monitor CMP Ordered CRP, ESR Continue pain control with oral Transfer and IV Dilaudid when necessary Ordered x-ray of hip ordered x-ray pelvis Start IV Solu-Medrol Ordered muscle relaxers PT and OT evaluation Resume home meds Consult orthopedics Labs and medication were reviewed.. Continue same treatment. Continue with symptomatic treatment. Resume home medication. Monitor labs and vitals. DVT and GI prophylaxis. Further recommendations as per clinical course of the patient Dictation was produced using [employer] dictation software. please excuse any grammatical, word or spelling errors. Past Medical History Past Medical History: Atrial Fibrillation, Heart Failure, Diabetes Mellitus, Hyperlipidemia, Hypertension, Myocardial Infarction ([place]) Additional Past Medical History / Comment(s): SOB, edema. Last Myocardial Infarction Date:: 2002 History of Any Multi-Drug Resistant Organisms: None Reported Past Surgical History: Heart Catheterization With Stent Additional Past Surgical History / Comment(s): 2 cardiac stents placed in ehlene mike. 2002 and replaced 07/2017. Past Anesthesia/Blood Transfusion Reactions: No Reported Reaction Additional Past Anesthesia/Blood Transfusion Reaction / Comment(s): HAS NEVER HAD GENERAL ANESTHESIA. Date of Last Stent Placement:: 2002 Type of Cardiac Device: Permanent Pacemaker Past Psychological History: No Psychological Hx Reported Smoking Status: Former smoker Past Alcohol Use History: Rare Past Drug Use History: None Reported - Past Family History Mother Family Medical History: No Reported History Medications and Allergies Home Medications Medication Instructions Recorded Confirmed Type Insulin Glargine,Hum.rec.anlog 33 unit SQ BID 08/23/17 05/18/23 History [Basaglar Kwikpen U-100] Cyanocobalamin [Vitamin B-12] 500 mcg PO DAILY 04/04/18 05/18/23 History Furosemide [Lasix] 40 mg PO DAILY 04/04/18 05/18/23 History metFORMIN HCL [Glucophage] 1,000 mg PO DAILY 04/04/18 05/18/23 History Ibuprofen [Motrin] 600 mg PO Q6HR PRN #20 tab 04/10/23 05/18/23 Rx Cholecalciferol [Vitamin D3 (25 50 mcg PO DAILY 05/18/23 05/18/23 History Mcg = 1000 Iu)] Dapagliflozin Propanediol [Farxiga] 10 mg PO W/SUPPER 05/18/23 05/18/23 History Furosemide [Lasix] 20 mg PO W/SUPPER 05/18/23 05/18/23 History L.acidoph,Paracasei, B.lactis 1 cap PO DAILY 05/18/23 05/18/23 History [Probiotic] Metoprolol Succinate (ER) [Toprol 100 mg PO DAILY 05/18/23 05/18/23 History Xl] Warfarin [Coumadin] 7.5 mg PO W/SUPPER 05/18/23 05/18/23 History lisinopriL [Zestril] 5 mg PO DAILY 05/18/23 05/18/23 History Allergies Allergy/AdvReac Type Severity Reaction Status Date / Time No Known Allergies Allergy Verified 05/18/23 13:24 Physical Exam Vitals: Vital Signs Temp Pulse Resp BP Pulse Ox 05/18/23 12:39 91 18 95/53 95 05/18/23 08:45 97.7 F 87 20 143/81 99 Intake and Output 05/17/23 05/18/23 05/18/23 22:59 06:59 14:59 Other: Weight 115.212 kg Results CBC & Chem 7: 05/18/23 09:39 05/18/23 09:39 Labs: Abnormal Lab Results - Last 24 Hours (Table) 05/18/23 05/18/23 Range/Units 09:39 09:39 WBC 14.5 H (3.8-10.6) k/uL RBC 4.20 L (4.30-5.90) m/uL Neutrophils # 11.9 H (1.3-7.7) k/uL Potassium 5.4 H (3.5-5.1) mmol/L BUN 31 H (9-20) mg/dL Creatinine 1.51 H (0.66-1.25) mg/dL Glucose 124 H (74-99) mg/dL C-Reactive Protein 17.1 H (<1.0) mg/dL
[2023-05-18] MEDS: methylPREDNISolone SOD SUCCI 40 MG/ML 1 ML VIAL IV SCH ×2 (15:22→21:07)
[2023-05-18 15:24] LABS: INR 2.2 (<1.2); Prothrombin Time 22.4 sec (10.0-12.5)
--- NOTE | 2023-05-18 16:39 | XR ---
History this 60 weight is 30 60 cc's EXAMINATION TYPE: XR Hip Bilateral and AP pelvis DATE OF EXAM: 05/18/2023 CLINICAL HISTORY: pain TECHNIQUE: Single view the pelvis is submitted. 2 the Views of the bilateral ribs are also submitted. FINDINGS: No evidence for fracture, dislocation or bony lesion. Joint spaces are well-preserved. S I joints appear symmetric. IMPRESSION: 1. No acute fracture or dislocation seen. ICD 10 NO FRACTURE, INITIAL EVALUATION
--- NOTE | 2023-05-18 16:44 | XR ---
Areas EXAMINATION TYPE: XR spine complete AP and Lat DATE OF EXAM: 05/18/2023 COMPARISON: NONE HISTORY: Pain TECHNIQUE: Three views of the cervical spine are submitted. FINDINGS: The cervical spine is visualized in its entirety from C1 thru the top of T1 level. It is s atisfactory in alignment without evidence of acute fracture or dislocation. The pre-vertebral soft t issue appears within normal limits. The C1-C2 articulation is unremarkable on the open mouth view. Mild scattered degenerative disc space narrowing. IMPRESSION: No acute fracture or dislocation is seen in the cervical spine. Disc spaces are well pre served. THORACIC SPINE 2 VIEWS. TECHNIQUE: Frontal, lateral, and swimmer's view of thoracic spine are obtained. COMPARISON: None. FINDINGS: Thoracic spine show satisfactory alignment without evidence of acute fracture or dislocatio n. Vertebral body heights are preserved. Mild scattered degenerative disc space narrowing. Visual ized ribs are unremarkable. IMPRESSION: No acute fracture or dislocation is seen in the thoracic spine. Disc spaces are well pres erved. LUMBAR SPINE X-RAY: TECHNIQUE: Three views of the lumbar spine are submitted. COMPARISON: None. FINDINGS: There are 5 lumbar type vertebral bodies identified. The lumbar spine shows satisfactory alignment without evidence of acute fracture or dislocation. Vertebral body heights are within normal limits. Mild scattered degenerative disc space narrowing. The overlying soft tissue appears unre markable. IMPRESSION: No acute fracture or dislocation is seen in the lumbar spine. Mild scattered degenerati ve disc space narrowing.ICD 10 NO FRACTURE, INITIAL EVALUATION
[2023-05-18 17:01] LABS: Glucose,Whole Blood 201 mg/dL (70-110)
[2023-05-18] MEDS: INSULIN ASPART (NovoLOG) 100 UNIT/ML VIAL SQ SCH ×2 (17:28→21:07)
[2023-05-18] MEDS ORDERED: DAPAGLIFLOZIN PROPANEDIOL 10 MG TABLET PO SCH (17:30)
[2023-05-18] MEDS ORDERED: WARFARIN 7.5 MG TAB PO ONE (18:00)
[2023-05-18 21:01] LABS: Glucose,Whole Blood 252 mg/dL (70-110)
[2023-05-18] MEDS: INSULIN DETEMIR (LEVEMIR) 100 UNIT/ML SYR SQ SCH (21:07)
[2023-05-19 03:12] VITALS: PULSE 80
[2023-05-19 05:59] LABS: Glucose,Whole Blood 216 mg/dL (70-110)
[2023-05-19] MEDS: INSULIN ASPART (NovoLOG) 100 UNIT/ML VIAL SQ SCH ×2 (06:09→12:28)
[2023-05-19 07:31] LABS: INR 2.1 (<1.2); Prothrombin Time 20.6 sec (10.0-12.5)
[2023-05-19 08:00] VITALS: BP 106/72; RESP 16; TEMP 97.6
[2023-05-19 08:24] LABS: Erythrocyte Sedimentation Rate 64 mm/Hr (0-20)
[2023-05-19] MEDS: INSULIN DETEMIR (LEVEMIR) 100 UNIT/ML SYR SQ SCH (08:49)
[2023-05-19] MEDS: methylPREDNISolone SOD SUCCI 40 MG/ML 1 ML VIAL IV SCH (08:49)
[2023-05-19] MEDS ORDERED: METOPROLOL SUCCINATE (ER) 100 MG TAB.ER.24H PO SCH (09:00)
[2023-05-19] MEDS ORDERED: ENOXAPARIN 40 MG/0.4 ML SYRINGE SQ SCH (09:00)
[2023-05-19] MEDS ORDERED: LACTOBACILLUS ACIDOPHILUS/PECT 1 EACH CAPSULE PO SCH (09:00)
[2023-05-19] MEDS ORDERED: CYANOCOBALAMIN 500 MCG TAB PO SCH (09:00)
[2023-05-19] MEDS ORDERED: CHOLECALCIFEROL 25 MCG (1000 IU) TABLET PO SCH (09:00)
[2023-05-19 09:15] LABS: ALT 26 U/L (10-49); AST 24 U/L (14-35); Albumin 3.6 g/dL (3.8-4.9); Albumin/Globulin Ratio 1.06 Ratio (1.60-3.17); Alkaline Phosphatase 69 U/L (41-126); BUN/Creat Ratio 23.29 Ratio (12.00-20.00); Blood Urea Nitrogen 32.6 mg/dL (9.0-27.0); Calcium 9.6 mg/dL (8.7-10.3); Carbon Dioxide 20.7 mmol/L (21.6-31.8); Chloride 105 mmol/L (96-109); Globulin 3.4 g/dL (1.6-3.3); Glucose 196 mg/dL (70-110); Potassium 5.7 mmol/L (3.5-5.5); Sodium 141 mmol/L (135-145); Total Bilirubin 0.6 mg/dL (0.3-1.2)
[2023-05-19 09:47] LABS: Basophils # (A) 0.01 X 10*3/uL (0.00-0.10); Basophils % (A) 0.1 %; Eosinophils # (A) 0 X 10*3/uL (0.04-0.35); Eosinophils % (A) 0 %; HCT 41.6 % (39.6-50.0); MCHC 31.3 g/dL (32.0-37.0); Mean Platelet Volume 10.1 FL (9.5-12.2); Monocytes # (A) 0.38 X 10*3/uL (0.20-1.00); Monocytes % (A) 3.8 %; NRBC Per 100 WBC 0 X 10*3/uL (0.00-0.01); Neutrophils # (A) 8.72 X 10*3/uL (1.80-7.70); Neutrophils % (A) 86.7 %; Platelet Count 434 X 10*3/uL (140-440); RDW 14.5 % (11.5-14.5); WBC 10.05 X 10*3/uL (4.50-10.00)
--- NOTE | 2023-05-19 10:06 | P.CNOR ---
History of Present Illness - [facility] Consult date: 05/19/23 Consult reason: other History of present illness: Diffuse progressive joint pain and multiple areas over the past 7 weeks with debility The patient is seen and examined at bedside He is a very pleasant 72-year-old male who is comfortable by his family. He says this morning he feels great. He feels he has had great improvement since yesterday. He feels that starting steroids has made a great difference for him just overnight. He is ambulatory and moving and he feels his pain is almost gone. Patient says that over the past 7 weeks he has been having some worsening issues at home. It started with some pain around his right groin and shoulder. He had some initial workup and evaluation with surgery to evaluate some nerve lymph nodes. Apparently the workup did not show specific findings and he does not have further treatment from surgery. That pain at the groin seems to have changed and he's been having some pain at his shoulder is bilateral hips and his knee. He does not have any history of problems at these areas. In the past. He had some generalized aches and pains in his left shoulder and his low back and his left knee in the past but those were essentially mild. Over the past 7 weeks he has had worsening pain where he has had significant debility particularly in the past 2 weeks. He has been having great difficulty just getting in and out of bed. In the past week he has been tearful because of his pain and essentially in agony with his pain at his hips and moving toward her shoulder and his lower back. He denies any specific numbness tingling or weakness. He denies any changes in bowel bladder function. He was having great difficulty just getting around at home and presented to the hospital. Yesterday he was admitted to hospital and started on steroid medication and he feels he is doing great with this. He has had vast improvement in his pain and his mobility. He feels that he is doing great, since starting steroid yesterday. Review of Systems He denies any recent fevers chills or night sweats. Denies any chest pain shortness of breath. He had severe debility over the past couple of weeks particularly in the last week. Now he feels he is doing great. He denies any recent travel or illness. He denies any prior episodes like this. Denies any changes in bowel bladder function. Denies any specific weakness. Past Medical History Past Medical History: Atrial Fibrillation, Heart Failure, Diabetes Mellitus, Hyperlipidemia, Hypertension, Myocardial Infarction ([place]) Additional Past Medical History / Comment(s): SOB, edema. Last Myocardial Infarction Date:: 2002 History of Any Multi-Drug Resistant Organisms: None Reported Past Surgical History: Heart Catheterization With Stent Additional Past Surgical History / Comment(s): 2 cardiac stents placed in [place]ene [place]. 2002 and replaced 07/2017. Past Anesthesia/Blood Transfusion Reactions: No Reported Reaction Additional Past Anesthesia/Blood Transfusion Reaction / Comm: HAS NEVER HAD GENERAL ANESTHESIA. Date of Last Stent Placement:: 2002 Type of Cardiac Device: Permanent Pacemaker Past Psychological History: No Psychological Hx Reported Additional Psychological History / Comment(s): SEASONAL AFFECTIVE DISORDER (SAD). HISTORY OF DEPRESSION, 2009 (HAD LOST HIS JOB). Smoking Status: Former smoker Past Alcohol Use History: Rare Additional Past Alcohol Use History / Comment(s): SMOKED FOR 45 YRS, 2 PPD, QUIT IN 2002. Past Drug Use History: None Reported - Past Family History Mother Family Medical History: No Reported History Medications and Allergies Home Medications Medication Instructions Recorded Confirmed Type Insulin Glargine,Hum.rec.anlog 33 unit SQ BID 08/23/17 05/18/23 History [Basaglar Kwikpen U-100] Cyanocobalamin [Vitamin B-12] 500 mcg PO DAILY 04/04/18 05/18/23 History Furosemide [Lasix] 40 mg PO DAILY 04/04/18 05/18/23 History metFORMIN HCL [Glucophage] 1,000 mg PO DAILY 04/04/18 05/18/23 History Ibuprofen [Motrin] 600 mg PO Q6HR PRN #20 tab 04/10/23 05/18/23 Rx Cholecalciferol [Vitamin D3 (25 50 mcg PO DAILY 05/18/23 05/18/23 History Mcg = 1000 Iu)] Dapagliflozin Propanediol [Farxiga] 10 mg PO W/SUPPER 05/18/23 05/18/23 History Furosemide [Lasix] 20 mg PO W/SUPPER 05/18/23 05/18/23 History L.acidoph,Paracasei, B.lactis 1 cap PO DAILY 05/18/23 05/18/23 History [Probiotic] Metoprolol Succinate (ER) [Toprol 100 mg PO DAILY 05/18/23 05/18/23 History Xl] Warfarin [Coumadin] 7.5 mg PO W/SUPPER 05/18/23 05/18/23 History lisinopriL [Zestril] 5 mg PO DAILY 05/18/23 05/18/23 History Allergies Allergy/AdvReac Type Severity Reaction Status Date / Time No Known Allergies Allergy Verified 05/18/23 13:24 Physical Examination Osteopathic Statement: *. No significant issues noted on an osteopathic struct ural exam other than those noted in the History and Physical/Consult. - L Spine: dermatomal strength & reflexes bilateral Strength: hip flexion: 5/5 (On exam today the patient has good motion at his back. He is able to stand and stand up on his toes and heels shortly. He is able to flex forward to about 40 and extend about 5. His back is nontender.) Strength: hip extension: 5/5 (His hips and legs have 5 out of 5 muscle strength throughout. No pain with internal and external rotation. His upper extremities have good motion. He has some limitations with full abduction and flexion but is able lift his hands up over his shoulders. His neck is nontender to palpation range of) Results - Labs Labs: Abnormal Lab Results - Last 24 Hours (Table) 05/18/23 05/18/23 05/18/23 Range/Units 09:39 09:39 14:16 WBC 14.5 H (3.8-10.6) k/uL RBC 4.20 L (4.30-5.90) m/uL MCV (80.0-97.0) FL MCHC (32.0-37.0) g/dL Neutrophils # 11.9 H (1.3-7.7) k/uL Eosinophils # (0.04-0.35) X 10*3/uL ESR 64 H (0-20) mm/Hr PT 22.4 H (10.0-12.5) sec INR 2.2 H (<1.2) Potassium 5.4 H (3.5-5.1) mmol/L Carbon Dioxide (21.6-31.8) mmol/L Anion Gap (4.00-12.00) mmol/L BUN 31 H (9-20) mg/dL Creatinine 1.51 H (0.66-1.25) mg/dL Est GFR (CKD-EPI) (>=60) BUN/Creatinine Ratio (12.00-20.00) Ratio Glucose 124 H (74-99) mg/dL POC Glucose (mg/dL) (70-110) mg/dL Hemoglobin A1c (<=6.0) % C-Reactive Protein 17.1 H (<1.0) mg/dL Albumin (3.8-4.9) g/dL Globulin (1.6-3.3) g/dL Albumin/Globulin Ratio (1.60-3.17) Ratio 05/18/23 05/18/23 05/18/23 Range/Units 14:19 16:59 20:59 WBC (3.8-10.6) k/uL RBC (4.30-5.90) m/uL MCV (80.0-97.0) FL MCHC (32.0-37.0) g/dL Neutrophils # (1.3-7.7) k/uL Eosinophils # (0.04-0.35) X 10*3/uL ESR (0-20) mm/Hr PT (10.0-12.5) sec INR (<1.2) Potassium (3.5-5.1) mmol/L Carbon Dioxide (21.6-31.8) mmol/L Anion Gap (4.00-12.00) mmol/L BUN (9-20) mg/dL Creatinine (0.66-1.25) mg/dL Est GFR (CKD-EPI) (>=60) BUN/Creatinine Ratio (12.00-20.00) Ratio Glucose (74-99) mg/dL POC Glucose (mg/dL) 201 H 252 H (70-110) mg/dL Hemoglobin A1c 9.0 H (<=6.0) % C-Reactive Protein (<1.0) mg/dL Albumin (3.8-4.9) g/dL Globulin (1.6-3.3) g/dL Albumin/Globulin Ratio (1.60-3.17) Ratio 05/19/23 05/19/23 05/19/23 Range/Units 05:58 06:40 06:40 WBC 10.05 H (3.8-10.6) k/uL RBC 4.20 L (4.30-5.90) m/uL MCV 99.0 H (80.0-97.0) FL MCHC 31.3 L (32.0-37.0) g/dL Neutrophils # 8.72 H (1.3-7.7) k/uL Eosinophils # 0 L (0.04-0.35) X 10*3/uL ESR (0-20) mm/Hr PT (10.0-12.5) sec INR (<1.2) Potassium 5.7 H (3.5-5.1) mmol/L Carbon Dioxide 20.7 L (21.6-31.8) mmol/L Anion Gap 15.30 H (4.00-12.00) mmol/L BUN 32.6 H (9-20) mg/dL Creatinine (0.66-1.25) mg/dL Est GFR (CKD-EPI) 53 L (>=60) BUN/Creatinine Ratio 23.29 H (12.00-20.00) Ratio Glucose 196 H (74-99) mg/dL POC Glucose (mg/dL) 216 H (70-110) mg/dL Hemoglobin A1c (<=6.0) % C-Reactive Protein (<1.0) mg/dL Albumin 3.6 L (3.8-4.9) g/dL Globulin 3.4 H (1.6-3.3) g/dL Albumin/Globulin Ratio 1.06 L (1.60-3.17) Ratio 05/19/23 Range/Units 06:40 WBC (3.8-10.6) k/uL RBC (4.30-5.90) m/uL MCV (80.0-97.0) FL MCHC (32.0-37.0) g/dL Neutrophils # (1.3-7.7) k/uL Eosinophils # (0.04-0.35) X 10*3/uL ESR (0-20) mm/Hr PT 20.6 H (10.0-12.5) sec INR 2.1 H (<1.2) Potassium (3.5-5.1) mmol/L Carbon Dioxide (21.6-31.8) mmol/L Anion Gap (4.00-12.00) mmol/L BUN (9-20) mg/dL Creatinine (0.66-1.25) mg/dL Est GFR (CKD-EPI) (>=60) BUN/Creatinine Ratio (12.00-20.00) Ratio Glucose (74-99) mg/dL POC Glucose (mg/dL) (70-110) mg/dL Hemoglobin A1c (<=6.0) % C-Reactive Protein (<1.0) mg/dL Albumin (3.8-4.9) g/dL Globulin (1.6-3.3) g/dL Albumin/Globulin Ratio (1.60-3.17) Ratio H & H 05/18/23 05/19/23 Range/Units 09:39 06:40 Hgb 13.2 13.0 (13.0-17.5) gm/dL Hct 40.5 41.6 (39.0-53.0) % Coagulation 05/18/23 05/19/23 Range/Units 14:16 06:40 INR 2.2 H 2.1 H (<1.2) Result Diagrams: 05/19/23 06:40 05/19/23 06:40 - Diagnostic results Hip x-ray: report reviewed, image reviewed (Imaging of his spine and pelvis and hips show some diffuse degenerative change. There is no acute fracture. This no obvious dislocation) Cervical AP/lateral x-ray: report reviewed, image reviewed Lumbar AP/lateral x-ray: report reviewed, image reviewed Assessment and Plan Assessment: Resolving pain well with steroid medication overnight Likely polymyalgia rheumatica exacerbation and flareup with elevated ESR and CRP No apparent bony fractures or trauma Muscle medical issues including history of diabetes hypertension and myocardial infarction with defibrillator in place Plan: Resolving pain well with steroid medication overnight Likely polymyalgia rheumatica exacerbation and flareup with elevated ESR and CRP No apparent bony fractures or trauma Muscle medical issues including history of diabetes hypertension and myocardial infarction with defibrillator in place The patient has been having significant issues for the past 7 weeks which has worsened particularly in the past 2 weeks to the point where he was essentially incapacitated with his pain. His pain was somewhat migratory in nature affecting different joints at different times. It seemed to be localizing primary N his hips shoulders and low back. His workup for abdominal lymph nodes did not show any acute findings. His lab work shows elevated sed rate and CRP and he seemed to be having significant inflammatory response which correlated well with polymyalgia rheumatica. The patient does not have any history of polymyalgia in the past. He has had great improvement with his IV steroid medication and I think that he can continue to do well with converting to oral steroids. I think that he could begin oral steroid at 60 mg per day over several days and then potentially tapering down from their adhesive able. With his blood sugars and history of diabetes this will be effective and I would defer this treatment to medicine. I think that he could do well with evaluation with rheumatology as an outpatient. They may be able to control steroids well. He is also planning on establish a new contact with a new primary care physician this coming Saturday and I think that is appropriate for him. From an orthopedic standpoint and spine standpoint I do not have plans for further orthopedic her spinal imaging right now. I would not plan any specific procedures for injections or surgical intervention from an orthopedic standpoint for now. History follow-up visit his new primary care physician and with rheumatology and made followed with orthopedics as needed He is very happy with his results with his steroid medication and should continue oral steroid post hospitalization and medical management
[2023-05-19 11:59] LABS: Glucose,Whole Blood 269 mg/dL (70-110)
--- NOTE | 2023-05-19 12:55 | P.DS ---
Providers Date of admission: 05/18/23 11:39 Expected date of discharge: 05/19/23 Attending physician: Briana Mcnulty MD Consults: 05/18/23 13:44 Consult Physician Routine Consulting Provider: China Yip Consult Reason/Comments: Back pain, bilateral hip pains Do you want consulting provider notified?: Yes Primary care physician: [facility] Course: Discharge diagnoses; Bilateral hip pain Polymyalgia rheumatica Inability to ambulate Hyperkalemia Insulin-dependent diabetes mellitus Hyperlipidemia Hypertension History of ischemic cardiomyopathy Chronic systolic CHF Coronary artery disease status post cardiac stenting Persistent atrial fibrillation Hospital course; patient 72 year old gentleman past medical history significant for congestive heart failure, diabetes who presented to the ER because of increasing hip pains. Patient stated that he was all right 2 months ago when he started noticing right hip pain, initially right hip pain was bearable and patient was able to carry out his activities but later on he started noticing that the pain was moving down his hip. Denied any numbness of right thigh or leg. Denies any fecal incontinence. Later on patient started noticing pain in his left hip as well. Patient did follow up with his PCP and they ordered ultrasound of groin.Ultrasound groin done on 04/10/23 showed prominent right inguinal lymph node. Patient was followed up by PCP and they order CT abdominal and pelvis.CT abdominal and pelvis done on 05/06/23 showed bilateral renal cysts, no acute abdominal process. Patient and patient's noticed that the pain was involving both hips now and he was unable to carry out his normal activities. Patient stated that he was unable to walk much. Patient states that he was able to put weight on his LEGS. Patient unable to lift his legs above 45. Because of these symptoms came to the ER. Patient also stated that for the last few days he has been having pain in his right elbow as well, thinks it could be a muscular problem. Initial lab work done in the ER showed WBC 14.5, hemoglobin 13.2, platelet count 302, sodium 138, potassium 5.4, BUN 31, creatinine 1.51, glucose 124, CRP 17.1, Influenza A not detected Influenza B not detected RSV not detected COVID-19 not detected Patient admitted to internal medicine service 05/25. Patient seen and examined. Patient was started on steroids overnight, joint pains have totally resolved. Orthopedics evaluated the patient, in the light of elevated CRP and ESR, most likely this polymyalgia rheumatica. Orthopedics recommended discharging on tapering dose of prednisone. Outpatient follow-up with PCP PHYSICAL EXAMINATION: GENERAL: The patient is alert and oriented x3, not in any acute distress. Well developed, well nourished. HEENT: Pupils are round and equally reacting to light. EOMI. No scleral icterus. No conjunctival pallor. Normocephalic, atraumatic. No pharyngeal erythema. No thyromegaly. CARDIOVASCULAR: S1 and S2 present. No murmurs, rubs, or gallops. PULMONARY: Chest is clear to auscultation, no wheezing or crackles. ABDOMEN: Soft, nontender, nondistended, normoactive bowel sounds. No palpable organomegaly. MUSCULOSKELETAL: No joint swelling or deformity. EXTREMITIES: No cyanosis, clubbing, or pedal edema. NEUROLOGICAL: Gross neurological examination did not reveal any focal deficits. SKIN: No rashes. Dictation was produced using [employer] dictation software. please excuse any grammatical, word or spelling errors. Patient Condition at Discharge: Good Plan - Discharge Summary New Discharge Prescriptions: New predniSONE 10 mg PO DAILY #60 tab Pantoprazole Sodium [Protonix] 20 mg PO DAILY 30 Days #30 tab Continue Insulin Glargine,Hum.rec.anlog [Basaglar Kwikpen U-100] 33 unit SQ BID metFORMIN HCL [Glucophage] 1,000 mg PO DAILY Furosemide [Lasix] 40 mg PO DAILY Cyanocobalamin [Vitamin B-12] 500 mcg PO DAILY Warfarin [Coumadin] 7.5 mg PO W/SUPPER Metoprolol Succinate (ER) [Toprol XL] 100 mg PO DAILY Dapagliflozin Propanediol [Farxiga] 10 mg PO W/SUPPER lisinopriL [Zestril] 5 mg PO DAILY Ibuprofen [Motrin] 600 mg PO Q6HR PRN #20 tab PRN Reason: For pain Furosemide [Lasix] 20 mg PO W/SUPPER L.acidoph,Paracasei, B.lactis [Probiotic] 1 cap PO DAILY Cholecalciferol [Vitamin D3 (25 Mcg = 1000 Iu)] 50 mcg PO DAILY Discharge Medication List Insulin Glargine,Hum.rec.anlog [Basaglar Kwikpen U-100] 33 unit SQ BID 08/23/17 [History] Cyanocobalamin [Vitamin B-12] 500 mcg PO DAILY 04/04/18 [History] Furosemide [Lasix] 40 mg PO DAILY 04/04/18 [History] metFORMIN HCL [Glucophage] 1,000 mg PO DAILY 04/04/18 [History] Ibuprofen [Motrin] 600 mg PO Q6HR PRN #20 tab 04/10/23 [Rx] Cholecalciferol [Vitamin D3 (25 Mcg = 1000 Iu)] 50 mcg PO DAILY 05/18/23 [Hist ory] Dapagliflozin Propanediol [Farxiga] 10 mg PO W/SUPPER 05/18/23 [History] Furosemide [Lasix] 20 mg PO W/SUPPER 05/18/23 [History] L.acidoph,Paracasei, B.lactis [Probiotic] 1 cap PO DAILY 05/18/23 [History] Metoprolol Succinate (ER) [Toprol XL] 100 mg PO DAILY 05/18/23 [History] Warfarin [Coumadin] 7.5 mg PO W/SUPPER 05/18/23 [History] lisinopriL [Zestril] 5 mg PO DAILY 05/18/23 [History] Pantoprazole Sodium [Protonix] 20 mg PO DAILY 30 Days #30 tab 05/19/23 [Rx] predniSONE 10 mg PO DAILY #60 tab 05/19/23 [Rx] Follow up Appointment(s)/Referral(s): China Yip DO [Doctor of Osteopathic Medicine] - As Needed (Patient may follow-up with Dr. William Yip at [facility] on an as needed basis following discharge. ) Bernarda Loera MD [STAFF PHYSICIAN] - 2 Weeks ( new diagnosis of polymyalgia rheumatica) Allyson Salas [Primary Care Provider] - 1-2 days Activity/Diet/Wound Care/Special Instructions: May ambulate and do gentle activity to tolerance. Avoid heavy or rigorous activity. Discharge Disposition: HOME SELF-CARE
[2023-05-19] MEDS ORDERED: FUROSEMIDE 20 MG TAB PO SCH (17:30)
[2023-05-19] MEDS ORDERED: WARFARIN 7.5 MG TAB PO ONE (18:00)
[2023-05-20] MEDS ORDERED: FUROSEMIDE 40 MG TAB PO SCH (09:00)
== END 2023-05-19 13:30 | disposition home or self-care (01) ==
LOC: EC 08:39 → 6NMEDSUR 11:39
PROVIDERS: ADMIT Internal Medicine; ATTEND Internal Medicine
DX: M25.552 Pain in left hip (principal); M25.551 Pain in right hip; I11.0 Hypertensive heart disease with heart failure; E78.5 Hyperlipidemia, unspecified; E87.5 Hyperkalemia; E11.41 Type 2 diabetes mellitus with diabetic mononeuropathy; I25.10 Atherosclerotic heart disease of native coronary artery without angina pectoris; I25.2 Old myocardial infarction; I25.5 Ischemic cardiomyopathy; I48.19 Other persistent atrial fibrillation; I50.22 Chronic systolic (congestive) heart failure; M35.3 Polymyalgia rheumatica; Z79.01 Long term (current) use of anticoagulants; Z87.891 Personal history of nicotine dependence; Z79.02 Long term (current) use of antithrombotics/antiplatelets; Z79.4 Long term (current) use of insulin; Z79.84 Long term (current) use of oral hypoglycemic drugs; Z79.899 Other long term (current) drug therapy; Z95.5 Presence of coronary angioplasty implant and graft; Z95.810 Presence of automatic (implantable) cardiac defibrillator; Z11.52 Encounter for screening for COVID-19
CPT/HCPCS: 96365; 96367; 96376 ×2; 96375; 99285; 36415; 93005; 80053 ×2; 85652; 83605; 83735; 85025 ×2; 85610 ×2; 86140; 86431; 86038; 83036; 87636; 72082; 73521; G0378 ×2; J2920 ×2; J1885; J1170; 96366

== ENCOUNTER 2023-07-22 14:05 | Day surgery (SDC) | payer MEDICARE ==
[2023-07-18 17:57] VITALS: BMI 32.5
[~2023-07-22 14:05] MED LIST changes: -MIDAZOLAM 2 MG/2 ML VIAL ONE; -PROPOFOL 10 MG/ML 20 ML VIAL IV ONE; -SODIUM CHLORIDE 0.9% 500 ML 500 ML IV ONE
[2023-07-22 15:06] LABS: Glucose,Whole Blood 344 mg/dL (70-110)
[2023-07-22 15:24] LABS: African American GFR (CKD) 74 (>60 ml/min/1.73 sqM); Anion Gap 8 mmol/L; Blood Urea Nitrogen 34 mg/dL (9-20); Calcium 9.5 mg/dL (8.4-10.2); Carbon Dioxide 25 mmol/L (22-30); Chloride 105 mmol/L (98-107); Glucose 249 mg/dL (74-99); Non-African American GFR(CKD) 64 (>60 ml/min/1.73 sqM); Potassium 5.4 mmol/L (3.5-5.1); Sodium 138 mmol/L (137-145)
[2023-07-22 15:31] LABS: INR 1.7 (<1.2); Prothrombin Time 17.1 sec (10.0-12.5)
[2023-07-22 15:45] VITALS: BP 119/92; PULSE 79; RESP 16; TEMP 97.9
[2023-07-22] MEDS: INSULIN ASPART (NovoLOG) 100 UNIT/ML VIAL SQ ONE (16:09)
[2023-07-22] MEDS: SODIUM CHLORIDE 0.9% 1,000 ML IV ONE (16:21)
[2023-07-22] MEDS: IOPAMIDOL-370 100ML BTL INJ ONE ×2 (17:17→17:18)
--- NOTE | 2023-07-22 17:42 | P.EPPROC ---
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 Loera and then make a decision regarding timing of the upgrade depending upon the treatment plan for Janes's granulomatosis He is currently on 20 mg of prednisone for polymyalgia rheumatica
== END 2023-07-22 17:33 | disposition home or self-care (01) ==
LOC: CATHEP 14:05
PROVIDERS: ATTEND Internal Medicine Clinical Cardiac Electrophysiology
DX: I48.91 Unspecified atrial fibrillation (principal); Q26.0 Congenital stenosis of vena cava; I25.10 Atherosclerotic heart disease of native coronary artery without angina pectoris; I50.9 Heart failure, unspecified; Z79.899 Other long term (current) drug therapy
CPT/HCPCS: 36005; 75820; 80048; 85610; Q9967

== ENCOUNTER 2024-04-06 11:04 | Inpatient (IN) | payer MEDICARE ==
[~2024-04-06 11:04] MED LIST changes: -SODIUM CHLORIDE 0.9% 1,000 ML IV SCH; +ceFAZolin 1 GM in SODIUM CHLORIDE 0.9% IRRIG BTL 250 ML IRRIGATION PRN
[2024-04-06] MEDS: SODIUM CHLORIDE 0.9% 1,000 ML IV SCH ×2 (11:34→11:35)
[2024-04-06] MEDS: IV FLUID CONTINUATION 1,000 ML IV ONE (12:01)
[2024-04-06 12:06] LABS: Glucose,Whole Blood 156 mg/dL (70-110)
[2024-04-06] MEDS: VANCOMYCIN 1,750 MG in SODIUM CHLORIDE 0.9% 500 ML 500 ML IVPB PRN (12:06)
[2024-04-06] MEDS: VANCOMYCIN IV PER PHARMACY 1 EACH MISC MISCELLANE ONE (12:07)
[2024-04-06 12:14] LABS: INR 2.1 (<1.2); Prothrombin Time 20.7 sec (10.0-12.5)
[2024-04-06 12:18] LABS: ALT 28 U/L (4-49); AST 23 U/L (17-59); African American GFR (CKD) 59 (>60 ml/min/1.73 sqM); Albumin 4.7 g/dL (3.5-5.0); Alkaline Phosphatase 73 U/L (38-126); Anion Gap 6 mmol/L; Blood Urea Nitrogen 41 mg/dL (9-20); Calcium 9.6 mg/dL (8.4-10.2); Carbon Dioxide 26 mmol/L (22-30); Chloride 108 mmol/L (98-107); Glucose 159 mg/dL (74-99); Non-African American GFR(CKD) 51 (>60 ml/min/1.73 sqM); Potassium 4.8 mmol/L (3.5-5.1); Sodium 140 mmol/L (137-145); Total Protein 7.7 g/dL (6.3-8.2)
[2024-04-06] MEDS ORDERED: PROPOFOL 10 MG/ML 20 ML VIAL IV ONE (14:27)
[2024-04-06] MEDS ORDERED: MIDAZOLAM 2 MG/2 ML VIAL ONE (14:27)
[2024-04-06] MEDS ORDERED: fentaNYL (PF) 50 MCG/ML 2 ML AMP ONE (14:27)
[2024-04-06] MEDS: IOPAMIDOL-370 100ML BTL INJ ONE (14:48)
[2024-04-06] MEDS ORDERED: ACETAMINOPHEN TAB 325 MG TAB PO PRN (18:13)
--- NOTE | 2024-04-06 18:22 | P.EPPROC ---
- EP Procedure Note Electrophysiology Procedure Note: Procedure Attempted placement of LV lead Attempted placement of left bundle lead Indication for the procedure Severe cardiomyopathy class II CHF left bundle branch block QRS with greater than 140 ms Details Patient was brought to the EP lab in a fasting state. Written informed consent was obtained prior to the procedure. IV antibiotics were given including IV vancomycin. The patient was prepped and draped as a protocol. Lidocaine was used for local anesthesia. An incision was made directly over the previous surgical site and carried down to level of the generator the generator was explanted the leads were freed but the lead was not disconnected to the generator. The generator was placed back in the pocket and 2 venous accesses were obtained in the axillary vein successfully First LV pacing was attempted Access into the coronary sinus was difficult. Although the initial 2 cm of the coronary sinus was large and bulbous, the valve and the proximal coronary sinus was immediately beyond this and placement of the coronary sinus catheter was difficult but successfully performed. Following that multiple different sheaths and multiple different catheters angioplasty wires advantage wire and in a sheaths with different shapes were used. A venogram was performed The only usable vein that he had was lateral vein. Unfortunately this lateral vein drained just beyond the valve and therefore despite multiple attempts we could not even place a wire into this valve. In fact an angioplasty wire was placed antegradely via another branch to help locate the exact position of this vein but the vein could not be cannulated with the lead, angioplasty wires, advantage wire, and different in a sheaths were different shapes. Therefore left bundle pacing was attempted The right atrium was massive. The right ventricle was very enlarged. The ICD lead was in the mid to high septal position Once again this lead and sheath stability were a major issue. Both the Medtronic sheath and the Orantes sheath were used and despite better stability with the Orantes sheath no satisfactory position could be obtained. We did obtain on 2 occasions, W-shaped paced QRS in lead V1 but screwing the lead did not achieve a true right bundle. The stimulus to V6 time was very long greater than 110 ms. The site was not excepted. Multiple attempts were made for left bundle pacing with different sheaths but we were not successful in left bundle pacing either on account of the size of the right atrium and the right ventricle. Therefore an antibiotic pouch was placed in the pocket after washing it. The chronic lead and the single-chamber ICD generator was left in situ since they had not been disconnected. The wound was closed in 3 layers and dressed per protocol 50 cc of IV dye was injected during the procedure This is a long procedure lasting over greater than 2 and half hours Plan I would recommend surgical implantation thoracoscopic approach for the LV lead
[2024-04-06 20:13] LABS: Glucose,Whole Blood 112 mg/dL (70-110)
--- NOTE | 2024-04-06 21:19 | XR ---
EXAMINATION TYPE: XR chest 1V portable DATE OF EXAM: 04/06/2024 7:12 PM CLINICAL INDICATION:Male, 73 years old with history of Lead placement check; [facility] COMPARISON: Chest radiographs from 01/03/2018. TECHNIQUE: XR chest 1V portable Frontal view of the chest. FINDINGS: Lungs/Pleura: Low lung volumes are present. Prominent interstitial markings seen bilaterally likely c hronic in nature. There is no evidence of pleural effusion, focal consolidation, or pneumothorax. Pulmonary vascularity: Unremarkable. Heart/mediastinum: Is partially obscured by diaphragm. Single-lead cardiac conduction device overlyin g the left hemithorax with lead projecting over the right ventricle. This has a similar appearance an d positioning at the 2018 x-ray in reference. Musculoskeletal: No acute osseous pathology. Other findings: None IMPRESSION: No acute cardiopulmonary disease/process. Stable appearance of a left chest single lead ICD device. [facility], , 04/06/2024 9:16 PM
[2024-04-06] MEDS: AVACOPAN 10 MG PO SCH (21:33)
[2024-04-06] MEDS: INSULIN DETEMIR (LEVEMIR) 100 UNIT/ML SYR SQ SCH (21:33)
[2024-04-06 23:44] VITALS: RESP 16
[2024-04-07 06:31] LABS: Glucose,Whole Blood 143 mg/dL (70-110)
[2024-04-07] MEDS: NON FORMULARY DRUG (Insulin Glargine/Lixisenatide [Soliqua 100 Unit-33 Mcg/Ml Pen] 3 ML In SQ SCH (06:40)
[2024-04-07] MEDS: FUROSEMIDE 20 MG TAB PO SCH (09:03)
[2024-04-07] MEDS: ATORVASTATIN 20 MG TAB PO SCH (09:03)
[2024-04-07] MEDS: METOPROLOL SUCCINATE (ER) 100 MG TAB.ER.24H PO SCH (09:03)
[2024-04-07] MEDS: lisinopriL 5 MG TAB PO SCH (09:04)
--- NOTE | 2024-04-07 09:36 | P.GSCN ---
History of Present Illness Consult date: 04/07/24 Reason for Consult: Epicardial LV lead placement Requesting physician: Harrison Rivera History of present illness: This is a 73-year-old gentleman who follows outpatient with Dr. Rodriguez for primary care and Dr. Rivera for cardiology. He has a previous medical history of coronary artery disease with myocardial infarction and PCI, ischemic cardiomyopathy status post ICD placement, hypertension, hyperlipidemia, insulin- dependent diabetes, persistent atrial fibrillation on Coumadin outpatient for anticoagulation, vasculitis on CellCept and Tavneos outpatient, and previous tobacco dependence. The patient reported to [facility] yesterday for elective placement of LV lead by Dr. Rivera to upgrade ICD to a biventricular device. Unfortunately access to the coronary sinus was difficult, lateral vein was able to be cannulated, and multiple attempts at left bundle pacing were unsuccessful. His single-chamber ICD and chronic lead were left in situ, wound was closed and dressed and patient was sent to the sixth floor for overnight monitoring. Consultation was placed by Dr. Rivera to Dr. Elizalde for surgical epicardial lead placement. Review of Systems Review of systems was completed and was negative Past Medical History Past Medical History: Atrial Fibrillation, Coronary Artery Disease (CAD), Heart Failure, Diabetes Mellitus, Hyperlipidemia, Hypertension, Myocardial Infarction (DC) Additional Past Medical History / Comment(s): vasculitis Last Myocardial Infarction Date:: 2002 History of Any Multi-Drug Resistant Organisms: None Reported Past Surgical History: AICD, Heart Catheterization With Stent, Pacemaker Additional Past Surgical History / Comment(s): 2 cardiac stents t0 replace 1 longer stent 2017, [facility] AICD left chest Past Anesthesia/Blood Transfusion Reactions: No Reported Reaction Additional Past Anesthesia/Blood Transfusion Reaction / Comm: HAS NEVER HAD GENERAL ANESTHESIA. Date of Last Stent Placement:: 2017 Type of Cardiac Device: AICD Device Placement Date:: 2017 Past Psychological History: No Psychological Hx Reported Smoking Status: Former smoker Past Alcohol Use History: Rare Past Drug Use History: None Reported Additional History: Quit smoking approximately 25 years ago - Past Family History Mother Family Medical History: No Reported History Additional Family Medical History / Comment(s): from alcoholism Father Additional Family Medical History / Comment(s): from stomach problems Medications and Allergies Home Medications Medication Instructions Recorded Confirmed Type Insulin Glargine,Hum.rec.anlog 30 unit SQ HS 08/23/17 04/06/24 History [Basaglar Kwikpen U-100] metFORMIN HCL [Glucophage] 1,000 mg PO DAILY 04/04/18 04/03/24 History Cholecalciferol [Vitamin D3 (25 50 mcg PO DAILY 05/18/23 04/03/24 History Mcg = 1000 Iu)] Dapagliflozin Propanediol [Farxiga] 10 mg PO W/SUPPER 05/18/23 04/06/24 History Furosemide [Lasix] 20 mg PO QAM 05/18/23 04/03/24 History L.acidoph,Paracasei, B.lactis 1 cap PO DAILY 05/18/23 04/03/24 History [Probiotic] Metoprolol Succinate (ER) [Toprol 100 mg PO QAM 05/18/23 04/06/24 History XL] Warfarin [Coumadin] 7.5 mg PO W/SUPPER 05/18/23 04/06/24 History lisinopriL [Zestril] 5 mg PO DAILY 05/18/23 04/03/24 History Atorvastatin [Lipitor] 20 mg PO Q2D 07/18/23 04/03/24 History Insulin Glargine/Lixisenatide 60 units SQ QAM 07/18/23 04/03/24 History [Soliqua 100 Unit-33 Mcg/ml Pen] Vitamin B Complex 1 each PO DAILY 07/18/23 04/03/24 History Avacopan [Tavneos] 30 mg PO BID 04/03/24 04/06/24 History mycophenolate mofetiL [Cellcept] 500 mg PO BID 04/03/24 04/06/24 History Allergies Allergy/AdvReac Type Severity Reaction Status Date / Time No Known Allergies Allergy Verified 04/06/24 11:40 Surgical - Exam Vital Signs Temp Pulse Resp BP Pulse Ox 97.1 F L 77 16 151/83 99 04/06/24 12:04/06/24 12:04/06/24 12:04/06/24 12:04/06/24 12:01 CONSTITUTIONAL: Awake and alert, appears comfortable, cooperative, well- developed, well-nourished, no pain, no acute distress EYES: Pupils equal, round, reactive to light, normal ocular movement ENT: Moist mucous membranes without oral lesions present NECK: No masses, no bruits, trachea midline RESPIRATORY: Lungs sounds clear to auscultation bilaterally. Respirations even, nonlabored. Currently on room air with oxygen saturation 97%. Strong cough CARDIOVASCULAR: S1, S2 present. Irregular rate and rhythm. Palpable peripheral pulses bilaterally. Bilateral lower extremity edema present. No calf pain or tenderness noted GASTROINTESTINAL: Abdomen soft, nontender, nondistended without masses or organomegaly noted. There is no rebound or guarding present. Active bowel sounds present 4 quadrants. GENITOURINARY: Deferred INTEGUMENTARY: Skin is warm and dry NEUROLOGIC: Cranial nerves II through XII intact, normal coordination, no obvious motor or sensory deficits, speech is normal MUSKULOSKELETAL: Able to move all extremities, strength equal bilaterally, normal posture PSYCHIATRIC: Alert and oriented to person place and time, appropriate affect, intact judgment and insight Results - Labs 04/06/24 11:50 Abnormal Lab Results - Last 24 Hours (Table) 04/06/24 04/06/24 04/06/24 Range/Units 11:50 11:50 11:51 PT 20.7 H (10.0-12.5) sec INR 2.1 H (<1.2) Chloride 108 H (98-107) mmol/L BUN 41 H (9-20) mg/dL Creatinine 1.36 H (0.66-1.25) mg/dL Glucose 159 H (74-99) mg/dL POC Glucose (mg/dL) 156 H (70-110) mg/dL 04/06/24 04/07/24 Range/Units 20:12 06:29 PT (10.0-12.5) sec INR (<1.2) Chloride (98-107) mmol/L BUN (9-20) mg/dL Creatinine (0.66-1.25) mg/dL Glucose (74-99) mg/dL POC Glucose (mg/dL) 112 H 143 H (70-110) mg/dL Diabetes panel 04/06/24 Range/Units 11:50 Sodium 140 (137-145) mmol/L Potassium 4.8 (3.5-5.1) mmol/L Chloride 108 H (98-107) mmol/L Carbon Dioxide 26 (22-30) mmol/L BUN 41 H (9-20) mg/dL Creatinine 1.36 H (0.66-1.25) mg/dL Glucose 159 H (74-99) mg/dL Calcium 9.6 (8.4-10.2) mg/dL AST 23 (17-59) U/L ALT 28 (4-49) U/L Alkaline Phosphatase 73 (38-126) U/L Total Protein 7.7 (6.3-8.2) g/dL Albumin 4.7 (3.5-5.0) g/dL Thyroid panel 04/06/24 Range/Units 11:50 TSH 2.660 (0.465-4.680) mIU/L Calcium panel 04/06/24 Range/Units 11:50 Calcium 9.6 (8.4-10.2) mg/dL Albumin 4.7 (3.5-5.0) g/dL Pituitary panel 04/06/24 Range/Units 11:50 Sodium 140 (137-145) mmol/L Potassium 4.8 (3.5-5.1) mmol/L Chloride 108 H (98-107) mmol/L Carbon Dioxide 26 (22-30) mmol/L BUN 41 H (9-20) mg/dL Creatinine 1.36 H (0.66-1.25) mg/dL Glucose 159 H (74-99) mg/dL Calcium 9.6 (8.4-10.2) mg/dL TSH 2.660 (0.465-4.680) mIU/L Adrenal panel 04/06/24 Range/Units 11:50 Sodium 140 (137-145) mmol/L Potassium 4.8 (3.5-5.1) mmol/L Chloride 108 H (98-107) mmol/L Carbon Dioxide 26 (22-30) mmol/L BUN 41 H (9-20) mg/dL Creatinine 1.36 H (0.66-1.25) mg/dL Glucose 159 H (74-99) mg/dL Calcium 9.6 (8.4-10.2) mg/dL Total Bilirubin 1.0 (0.2-1.3) mg/dL AST 23 (17-59) U/L ALT 28 (4-49) U/L Alkaline Phosphatase 73 (38-126) U/L Total Protein 7.7 (6.3-8.2) g/dL Albumin 4.7 (3.5-5.0) g/dL Assessment and Plan Assessment: Unsuccessful placement of LV lead for upgrade to biventricular device History of coronary artery disease with myocardial infarction and PCI Ischemic cardiomyopathy status post ICD placement Hypertension Hyperlipidemia Insulin-dependent diabetes Persistent atrial fibrillation on Coumadin outpatient for anticoagulation Vasculitis on CellCept and Tavneos outpatient Previous tobacco dependence Plan: The patient was seen and examined sitting up in bed on the 6 floor observation unit. He is in no acute distress. Denies any pain or shortness of breath c urrently. Chart/diagnostics were reviewed. Case discussed with Dr. Elizalde. The usual course of surgical LV lead placement was discussed with the patient, all questions were answered. Due to patient's vasculitis and need for immunocompromising therapy Dr. Rivera requests the patient be given vancomycin in addition to Ancef for preoperative surgical prophylaxis, as well as antibiotic pocket for the ICD generator. The patient is cleared for discharge to home, will follow up in the office with Dr. Elizalde to plan for LV lead placement. Continue medical therapy per Dr. Rivera. Thank you Dr. Rivera for this consult, further recommendations regarding timing of LV lead placement forthcoming. I have personally seen and examined the patient, performed the documentation and the assessment and plan as written. Number of minutes spent on the visit: 30. YESSENIA Dawkins
--- NOTE | 2024-04-07 10:14 | P.DS ---
Providers Date of admission: 04/07/24 09:45 Attending physician: Harrison Rivera Consults: 04/06/24 19:51 Consult Physician Routine Consulting Provider: Dickson Elizalde Consult Reason/Comments: epicardial LV lead placement Do you want consulting provider notified?: Yes, Notify in am Primary care physician: Stated None Hospital Course: The patient is a 73-year-old male who underwent EP procedure yesterday with Dr. Brenner. Attempted left bundle lead and LV lead placement was unsuccessful despite multiple attempts. Patient interviewed and examined resting comfortably in bed. He is awaiting CV surgery consult for epicardial lead placement. GENERAL: Well-appearing, well-nourished and in no acute distress. NECK: Supple without JVD or thyromegaly. LUNGS: Breath sounds clear to auscultation bilaterally. Respiration equal and unlabored. No wheezes, rales or rhonchi. HEART: Regular rate and rhythm without murmurs, rubs or gallops. S1 and S2 heard. Dressing clean dry and intact on left anterior chest wall EXTREMITIES: Normal range of motion, no edema. No clubbing or cyanosis. Peripheral pulses intact and strong. IMPRESSION: Attempted placement of LV and left bundle lead Severe cardiomyopathy Class II congestive heart failure Left bundle branch block with wide QRS PLAN: Consult CV surgery for epicardial lead placement Awaiting recommendations regarding inpatient versus outpatient I am dictating on behalf of Dr Harrison Rivera's history/physical and assessment/plan. Plan - Discharge Summary Discharge Rx Participant: Yes New Discharge Prescriptions: No Action Insulin Glargine,Hum.rec.anlog [Basaglar Kwikpen U-100] 30 unit SQ HS metFORMIN HCL [Glucophage] 1,000 mg PO DAILY Warfarin [Coumadin] 7.5 mg PO W/SUPPER Metoprolol Succinate (ER) [Toprol XL] 100 mg PO QAM Dapagliflozin Propanediol [Farxiga] 10 mg PO W/SUPPER lisinopriL [Zestril] 5 mg PO DAILY Furosemide [Lasix] 20 mg PO QAM L.acidoph,Paracasei, B.lactis [Probiotic] 1 cap PO DAILY Cholecalciferol [Vitamin D3 (25 Mcg = 1000 Iu)] 50 mcg PO DAILY Insulin Glargine/Lixisenatide [Soliqua 100 Unit-33 Mcg/ml Pen] 60 units SQ QAM Atorvastatin [Lipitor] 20 mg PO Q2D Vitamin B Complex 1 each PO DAILY mycophenolate mofetiL [Cellcept] 500 mg PO BID Avacopan [Tavneos] 30 mg PO BID Discharge Medication List Insulin Glargine,Hum.rec.anlog [Basaglar Osvaldoikpen U-100] 30 unit SQ HS 08/23/17 [History] metFORMIN HCL [Glucophage] 1,000 mg PO DAILY 04/04/18 [History] Cholecalciferol [Vitamin D3 (25 Mcg = 1000 Iu)] 50 mcg PO DAILY 05/18/23 [History] Dapagliflozin Propanediol [Farxiga] 10 mg PO W/SUPPER 05/18/23 [History] Furosemide [Lasix] 20 mg PO QAM 05/18/23 [History] L.acidoph,Paracasei, B.lactis [Probiotic] 1 cap PO DAILY 05/18/23 [History] Metoprolol Succinate (ER) [Toprol XL] 100 mg PO QAM 05/18/23 [History] Warfarin [Coumadin] 7.5 mg PO W/SUPPER 05/18/23 [History] lisinopriL [Zestril] 5 mg PO DAILY 05/18/23 [History] Atorvastatin [Lipitor] 20 mg PO Q2D 07/18/23 [History] Insulin Glargine/Lixisenatide [Soliqua 100 Unit-33 Mcg/ml Pen] 60 units SQ QAM 07/18/23 [History] Vitamin B Complex 1 each PO DAILY 07/18/23 [History] Avacopan [Tavneos] 30 mg PO BID 04/03/24 [History] mycophenolate mofetiL [Cellcept] 500 mg PO BID 04/03/24 [History] Follow up Appointment(s)/Referral(s): Harrison Rivera MD [STAFF PHYSICIAN] - 04/14/24 3:30 pm (DEVICE CLINIC APPOINTMENT IS ON Saturday AT 3:30 PM)
[2024-04-07 12:20] LABS: Glucose,Whole Blood 162 mg/dL (70-110)
[2024-04-07 15:19] VITALS: BP 132/73; PULSE 83; TEMP 98.1
[2024-04-07] MEDS ORDERED: DAPAGLIFLOZIN PROPANEDIOL 10 MG TABLET PO SCH (17:30)
[2024-04-10] MEDS ORDERED: metFORMIN 500 MG TAB PO SCH (09:00)
== END 2024-04-07 15:13 | disposition home or self-care (01) | DRG 315 ==
LOC: CATHEP 11:04 → 6NMEDSUR 18:08 → CATHEP 04-07 09:45
PROVIDERS: ADMIT Internal Medicine Clinical Cardiac Electrophysiology; ATTEND Internal Medicine Clinical Cardiac Electrophysiology
DX: Z45.018 Encounter for adjustment and management of other part of cardiac pacemaker (principal); I48.19 Other persistent atrial fibrillation; E11.9 Type 2 diabetes mellitus without complications; E78.5 Hyperlipidemia, unspecified; I11.0 Hypertensive heart disease with heart failure; I25.10 Atherosclerotic heart disease of native coronary artery without angina pectoris; I25.2 Old myocardial infarction; I25.5 Ischemic cardiomyopathy; I44.7 Left bundle-branch block, unspecified; I77.6 Arteritis, unspecified; I50.9 Heart failure, unspecified; Z53.8 Procedure and treatment not carried out for other reasons; Z79.01 Long term (current) use of anticoagulants; Z79.4 Long term (current) use of insulin; Z79.624 Long term (current) use of inhibitors of nucleotide synthesis; Z79.84 Long term (current) use of oral hypoglycemic drugs; Z79.899 Other long term (current) drug therapy; Z87.891 Personal history of nicotine dependence; Z95.5 Presence of coronary angioplasty implant and graft
CPT/HCPCS: 33249; 71045; 80053; 84443; 85610; 86850; 86900; 86901

== ENCOUNTER 2024-04-20 09:10 | Inpatient (IN) | payer MEDICARE ==
[~2024-04-20 09:10] MED LIST changes: +LIDOCAINE 1% (10MG/ML) FOR IV START INTRADERMA PRN; -ceFAZolin 1 GM in SODIUM CHLORIDE 0.9% IRRIG BTL 250 ML IRRIGATION PRN
[2024-04-20] MEDS: IV FLUID CONTINUATION 1,000 ML IV ONE (09:41)
[2024-04-20] MEDS: LACTATED RINGERS 1,000 ML IV SCH (10:35)
[2024-04-20] MEDS: VANCOMYCIN 1,750 MG in SODIUM CHLORIDE 0.9% 500 ML 500 ML IVPB PRN (10:35)
[2024-04-20 10:39] LABS: Glucose,Whole Blood 114 mg/dL (70-110)
[2024-04-20] MEDS: ONDANSETRON 4 MG/2 ML VIAL IVP ONE (10:41)
[2024-04-20 10:48] LABS: HCT 44.5 % (39.0-53.0); HGB 14.8 gm/dL (13.0-17.5); MCH 32.7 pg (25.0-35.0); MCHC 33.2 g/dL (31.0-37.0); MCV 98.5 fL (80.0-100.0); Mean Platelet Volume 7.6; Platelet Count 200 k/uL (150-450); RBC 4.51 m/uL (4.30-5.90); RDW 14.8 % (11.5-15.5); WBC 10.8 k/uL (3.8-10.6)
[2024-04-20 11:06] LABS: African American GFR (CKD) 69 (>60 ml/min/1.73 sqM); Anion Gap 8 mmol/L; Blood Urea Nitrogen 35 mg/dL (9-20); Calcium 9.4 mg/dL (8.4-10.2); Carbon Dioxide 26 mmol/L (22-30); Chloride 107 mmol/L (98-107); Glucose 112 mg/dL (74-99); Non-African American GFR(CKD) 60 (>60 ml/min/1.73 sqM); Potassium 4.6 mmol/L (3.5-5.1); Sodium 141 mmol/L (137-145)
[2024-04-20] MEDS: MIDAZOLAM 2 MG/2 ML VIAL IV ONE (11:10)
[2024-04-20] MEDS: fentaNYL (PF) 50 MCG/ML 2 ML AMP IVP STA (11:10)
[2024-04-20 11:18] LABS: INR 1.1 (<1.2); Prothrombin Time 11.9 sec (10.0-12.5)
[2024-04-20] MEDS ORDERED: fentaNYL (PF) 50 MCG/ML 2 ML AMP ONE (11:36)
[2024-04-20] MEDS ORDERED: GLYCOPYRROLATE 0.2 MG/ML 2 ML VIAL ONE (11:36)
[2024-04-20] MEDS ORDERED: LIDOCAINE 1% INJ 10MG/ML (20 ML MDV) ONE (11:36)
[2024-04-20] MEDS ORDERED: ETOMIDATE 2 MG/ML 10 ML VIAL ONE (11:36)
[2024-04-20] MEDS ORDERED: ROCURONIUM 10 MG/ML (5 ML VIAL) IV ONE (11:36)
[2024-04-20] MEDS ORDERED: NEOSTIGMINE 1 MG/ML 10 ML VIAL ONE (11:36)
[2024-04-20] MEDS ORDERED: HYDROmorphone (PF) 1 MG/ML ONE (11:36)
[2024-04-20] MEDS ORDERED: ROPIVACAINE 5 MG/ML 30 ML VIAL ONE (11:36)
[2024-04-20] MEDS ORDERED: SUGAMMADEX SODIUM 100 MG/ML SYR IV ONE (11:36)
[2024-04-20] MEDS ORDERED: SUCCINYLCHOLINE CHLORIDE 200 MG/10 ML VIAL IV ONE (11:36)
[2024-04-20] MEDS: BUPIVACAINE (PF) 0.5% 30 ML VIAL SQ ONE (12:19)
--- NOTE | 2024-04-20 12:48 | P.ANPRN ---
Procedure Note - Anesthesia - Nerve Block Performed Left Erector Spinae Single Time Out Performed: Yes (1110) Date of Procedure: 04/20/24 Procedure Start Time: 11:11 Procedure Stop Time: 11:16 Location of Patient: PreOp Indication: Acute Post-Operative Pain, Requested by Surgeon Specifically requested for management of pain by DrSteven: Dickson Elizalde Sedation Type: Sedate with meaningful contact maintained Preparation: Sterile Prep Position: Sitting Catheter: None Needle Types: Pajunk Needle Gauge: 21 Ultrasound used to visualize needle placement: Yes Ultrasound used to observe medication spread: Yes Injectate: 0.5% Ropivacaine (see comment for volume) (30ccc) Blood Aspirated: No Pain Paresthesia on Injection Noted: No Resistance on Injection: Normal Image Stored and Saved: Yes Events: Uneventful and Well Tolerated
--- NOTE | 2024-04-20 12:49 | P.ANPRN ---
Procedure Note - Anesthesia - Invasive Line Right Arterial Line Time Out Performed: Yes (1110) Date of Procedure: 04/20/24 Time of Procedure: 11:22 Location of Patient: PreOp Preparation: Sterile Prep, Sterile Dressing Arterial Line Location: Radial (right) Ultrasound Used: Yes Purpose - Visualization and Identification of Vasculature: Yes Needle Guage: 20g angio Image Stored and Saved: Yes Narrative: Invasive line placement per sterile protocol utilized. 3 attemps
[2024-04-20] MEDS: IPRATROPIUM-ALBUTEROL 3 ML NEB INHALATION STA (13:29)
[2024-04-20] MEDS ORDERED: MD COMMUNICATION TO PHARMACY 1 EACH MISC PO PRN (13:46)
--- NOTE | 2024-04-20 13:51 | P.OP ---
Date of Procedure: 04/20/24 Preoperative Diagnosis: Severe cardiomyopathy, class II CHF, left bundle branch block, QRS greater than 140 ms Postoperative Diagnosis: Same Procedure(s) Performed: Left thoracoscopic placement of epicardial LV lead, upgrade single-chamber ICD to biventricular ICD Implants: Patricia Smith BiV ICD reference number [id number] serial #[id number], [facility] medical bipolar screw in epicardial lead reference #[id number] serial #[id number] Anesthesia: GETA Surgeon: Dickson Elizalde Estimated Blood Loss (ml): 5 IV fluids (ml): 500 Pathology: none sent Condition: stable Disposition: PACU Indications for Procedure: Patient is a 73-year-old male who had a single-chamber ICD implanted 7 years ago for impaired left ventricular function. He has chronic atrial fibrillation. He has worsening left ventricular ejection fraction, now down to 20%. He has left bundle branch with markedly widened QRS greater than 140 ms, he has symptomatic dyspnea with class II congestive heart failure. He underwent attempt at upgrade to a BiV ICD by Dr. Clay recently. Despite a 3-hour procedure, Dr. Brenner was unable to obtain a good functioning LV lead. He then referred the patient to de for epicardial lead placement. Operative Findings: The left pleural space was free of adhesions. Lung compliance was somewhat poor. Pericardial space was also without adhesions. LV lead implantation proceeded uneventfully. On opening the pocket, there was no evidence of infection. There was some serous fluid present. Lead sensing was excellent with R waves of 11.9 mV impedance of 390 ohms and a pacing threshold of 0.5 V on the RV lead. Lead sensing was also excellent on the new LV lead with R waves of 4.3 mV, impedance of 480 ohms and a pacing threshold of 0.7 V. Description of Procedure: Patient was brought to the operating room and placed supine on the operating table. General anesthesia was induced. Double-lumen endotracheal tube was placed and positioned under fiberoptic bronchoscopy. Patient was turned in the right lateral decubitus position and the left chest sterilely prepped and draped. Single lung ventilation was initiated. Two 1 inch incisions were made in the sixth and fifth interspace in the posterior axillary line. 11.5 Thoracoport was placed through 1 of these incisions. The lung was retracted posteriorly and the pericardium was visualized. We were able to grasp it with a ring forceps and ayden it with a scissors. We are then able to open fairly widely on the posterior lateral wall near the apex. A clear area of myocardium was identified as our target site for lead implantation. Epicardial screw-in lead was introduced into the chest cavity and screwed in to the LV at this site. This proceeded uneventfully. The lead was released and the lead was then loaded on a tunneling device. It was tunneled anteriorly out the fifth interspace. A small incision was made superior and inferior to the nipple and it was brought out through this incision. This was performed under thoracoscopic visualization being careful not to leave any tension on the lead. The lung was reinflated under thoracoscopic visualization. Thoracoscope was then removed. The posterior incisions were now closed with layers of Vicryl suture and skin glue. Subcutaneous pocket was created in the anterior incision and the lead was coiled within this pocket. It was closed with nell. The drapes were removed and the patient was turned supine and appropriately positioned. Anterior chest was reprepped and draped. The ICD pocket was reopened through the old incision and the ICD was freed and removed from the pocket. RV lead was disconnected from the old device. New device was passed up onto the field and the RV lead was connected to it. The skin clips were removed from the anterior incision beneath which the lead was coiled. The tunneling device was again attached to the lead and it was tunneled into the ICD pocket. Care was taken not to place too much tension on the lead to leave a good loop still within the chest cavity. The LV lead was connected to the ICD. The atrial port was plugged. ICD was checked and good numbers were noted. Pocket was checked for hemostasis and noted to be hemostatic. It was irrigated with antibiotic solution. ICD was replaced in the pocket with the leads coiled behind it. We again irrigated with antibiotic solution. We closed both of these incisions with layers of Vicryl suture and skin glue. Patient was then extubated and transferred to recovery in stable condition.
[2024-04-20] MEDS: HYDROmorphone 0.5 MG/0.5 ML SYRINGE IVP PRN (13:53)
[2024-04-20 14:03] LABS: Glucose,Whole Blood 138 mg/dL (70-110)
--- NOTE | 2024-04-20 14:39 | XR ---
EXAMINATION TYPE: XR chest 1V portable DATE OF EXAM: 04/20/2024 2:15 PM COMPARISON: 04/06/2024 CLINICAL INDICATION: Male, 73 years old with history of post LV lead placement, , FINDINGS: Left anterior chest wall pacemaker generator with right ventricular AICD lead and now placement of a left ventricular lead. Interstitial density is present. There is a small left apical pneumothorax denise suring 2.0 cm. Heart mildly enlarged. IMPRESSION: 1. Exam positive for a small left apical pneumothorax measuring 2.0 cm. 2. Left anterior chest wall AICD generator with right ventricular lead. Interval placement of a left ventricular lead and changing of the generator device. 3. Mild cardiomegaly and interstitial density. Correlate for mild CHF with pulmonary vascular congest ion. Critical finding called to NATHANIEL Lim in Recovery at 2:36pm. [facility], , 04/20/2024 2:36 PM
[2024-04-20] MEDS: KETOROLAC 15 MG/ML 1 ML VIAL IVP STA (14:49)
[2024-04-20] MEDS ORDERED: ACETAMINOPHEN TAB 325 MG TAB PO PRN (16:21)
[2024-04-20] MEDS ORDERED: DEXTROSE 50% SYRINGE 50 ML IVP PRN ×2 (16:21)
[2024-04-20] MEDS ORDERED: IPRATROPIUM-ALBUTEROL 3 ML NEB IH PRN (16:21)
[2024-04-20] MEDS ORDERED: ONDANSETRON 4 MG/2 ML VIAL IVP PRN (16:21)
[2024-04-20] MEDS: SODIUM CHLORIDE 0.9% 1,000 ML IV SCH (16:49)
[2024-04-20 16:56] LABS: Glucose,Whole Blood 113 mg/dL (70-110)
[2024-04-20] MEDS: INSULIN ASPART (NovoLOG) 100 UNIT/ML VIAL SQ SCH (17:23)
[2024-04-20] MEDS: methylPREDNISolone SOD SUCCI 125 MG/2 ML VIAL IV STA (17:30)
[2024-04-20] MEDS: KETOROLAC 15 MG/ML 1 ML VIAL IVP SCH (17:30)
[2024-04-20] MEDS: DAPAGLIFLOZIN PROPANEDIOL 10 MG TABLET PO SCH (17:31)
[2024-04-20] MEDS: WARFARIN 5 MG TAB PO ONE (17:31)
[2024-04-20] MEDS: traMADol 50 MG TAB PO PRN (20:31)
[2024-04-20] MEDS: INSULIN DETEMIR (LEVEMIR) 100 UNIT/ML SYR SQ SCH (20:32)
[2024-04-20 20:42] LABS: Glucose,Whole Blood 192 mg/dL (70-110)
[2024-04-20] MEDS: HEPARIN SODIUM,PORCINE 5,000 UNIT/ML 1 ML VIAL SQ SCH (23:20)
[2024-04-21 02:21] VITALS: RESP 16
[2024-04-21 03:44] VITALS: TEMP 98.3
[2024-04-21 06:01] LABS: Basophils % (A) 0 %; Eosinophils % (A) 0 %; HCT 42.4 % (39.0-53.0); HGB 13.6 gm/dL (13.0-17.5); Lymphocytes # (A) 0.5 k/uL (1.0-4.8); Lymphocytes % (A) 4 %; MCH 31.8 pg (25.0-35.0); MCHC 32.1 g/dL (31.0-37.0); MCV 99.1 fL (80.0-100.0); Macrocytosis Slight; Monocytes # (A) 0.7 k/uL (0-1.0); Monocytes % (A) 5 %; Neutrophils # (A) 11.9 k/uL (1.3-7.7); Neutrophils % (A) 90 %; Platelet Count 193 k/uL (150-450); RBC 4.27 m/uL (4.30-5.90); RDW 15.4 % (11.5-15.5); WBC 13.2 k/uL (3.8-10.6)
[2024-04-21 06:07] LABS: African American GFR (CKD) 58 (>60 ml/min/1.73 sqM); Anion Gap 6 mmol/L; Blood Urea Nitrogen 37 mg/dL (9-20); Calcium 9.1 mg/dL (8.4-10.2); Carbon Dioxide 22 mmol/L (22-30); Chloride 108 mmol/L (98-107); Glucose 231 mg/dL (74-99); INR 1.1 (<1.2); Non-African American GFR(CKD) 50 (>60 ml/min/1.73 sqM); Potassium 5.4 mmol/L (3.5-5.1); Prothrombin Time 11.6 sec (10.0-12.5); Sodium 136 mmol/L (137-145)
[2024-04-21 06:17] LABS: Glucose,Whole Blood 230 mg/dL (70-110)
[2024-04-21] MEDS: PANTOPRAZOLE 40 MG TABLET PO SCH (06:29)
--- NOTE | 2024-04-21 07:45 | P.DS ---
Providers Date of admission: 04/20/24 09:10 Expected date of discharge: 04/21/24 Attending physician: Dickson Elizalde Primary care physician: Rafael Rodriguez Hospital Course: FINAL DIAGNOSIS: Severe cardiomyopathy, class II CHF, left bundle branch block, QRS greater than 140 ms History of coronary artery disease with myocardial infarction and PCI Ischemic cardiomyopathy status post ICD placement Hypertension Hyperlipidemia Insulin-dependent diabetes Persistent atrial fibrillation on Coumadin outpatient for anticoagulation Vasculitis on CellCept and Tavneos outpatient Previous tobacco dependence PRINCIPAL PROCEDURE: Left thoracoscopic placement of epicardial LV lead, upgrade single-chamber ICD to biventricular ICD HISTORY OF PRESENT ILLNESS: This is a 73-year-old male who follows outpatient with Dr. Rodriguez for primary care and Dr. Rivera for cardiology. He had a single-chamber ICD implanted 7 years ago for impaired left ventricular function. He has chronic atrial fibrillation. He has worsening left ventricular ejection fraction, now down to 20%. He has left bundle branch with markedly widened QRS greater than 140 ms, he has symptomatic dyspnea with class II congestive heart failure. He underwent attempt at upgrade to a BiV ICD by Dr. Clay recently. Despite a 3-hour procedure, Dr. Rivera was unable to obtain a good functioning LV lead. He then referred the patient to Dr. Elizalde for epicardial lead placeme nt. HOSPITAL COURSE: The patient was brought to the hospital on 04/20/24, taken to the preoperative area, prepared in the usual fashion, and subsequently taken to the operating room where Dr. Elizalde performed a left thoracoscopic placement of epicardial LV lead with upgrade of single-chamber ICD to biventricular ICD. Upon completion of surgery the patient was extubated and taken to the recovery room for recovery and hemodynamic monitoring. He was eventually admitted to 3 S. cardiac stepdown unit for further monitoring and pain control. Repeat chest x- ray the morning after the procedure was stable. His oxygen was titrated down, he was tolerating oral diet, his pain was controlled, and he was ready to be discharged to home on postoperative day #1. He received written and verbal instruction regarding his medications, activity restrictions, signs and symptoms requiring physician notification, and follow-up appointments. Patient Condition at Discharge: Stable Plan - Discharge Summary Discharge Rx Participant: No New Discharge Prescriptions: Continue Insulin Glargine,Hum.rec.anlog [Marenagldarlene Bullock U-100] 30 unit SQ HS metFORMIN HCL [Glucophage] 1,000 mg PO DAILY Warfarin [Coumadin] 7.5 mg PO W/SUPPER Metoprolol Succinate (ER) [Toprol XL] 100 mg PO QAM Dapagliflozin Propanediol [Farxiga] 10 mg PO W/SUPPER lisinopriL [Zestril] 5 mg PO DAILY Furosemide [Lasix] 20 mg PO QAM L.acidoph,Paracasei, B.lactis [Probiotic] 1 cap PO DAILY Cholecalciferol [Vitamin D3 (25 Mcg = 1000 Iu)] 50 mcg PO DAILY Insulin Glargine/Lixisenatide [Soliqua 100 Unit-33 Mcg/ml Pen] 60 units SQ QAM Atorvastatin [Lipitor] 20 mg PO Q2D Vitamin B Complex 1 each PO DAILY mycophenolate mofetiL [Cellcept] 500 mg PO BID Avacopan [Tavneos] 30 mg PO BID Discharge Medication List Insulin Glargine,Hum.rec.anlog [Basaglar Kwikpen U-100] 30 unit SQ HS 08/23/17 [History] metFORMIN HCL [Glucophage] 1,000 mg PO DAILY 04/04/18 [History] Cholecalciferol [Vitamin D3 (25 Mcg = 1000 Iu)] 50 mcg PO DAILY 05/18/23 [History] Dapagliflozin Propanediol [Farxiga] 10 mg PO W/SUPPER 05/18/23 [History] Furosemide [Lasix] 20 mg PO QAM 05/18/23 [History] L.acidoph,Paracasei, B.lactis [Probiotic] 1 cap PO DAILY 05/18/23 [History] Metoprolol Succinate (ER) [Toprol XL] 100 mg PO QAM 05/18/23 [History] Warfarin [Coumadin] 7.5 mg PO W/SUPPER 05/18/23 [History] lisinopriL [Zestril] 5 mg PO DAILY 05/18/23 [History] Atorvastatin [Lipitor] 20 mg PO Q2D 07/18/23 [History] Insulin Glargine/Lixisenatide [Soliqua 100 Unit-33 Mcg/ml Pen] 60 units SQ QAM 07/18/23 [History] Vitamin B Complex 1 each PO DAILY 07/18/23 [History] Avacopan [Tavneos] 30 mg PO BID 04/03/24 [History] mycophenolate mofetiL [Cellcept] 500 mg PO BID 04/03/24 [History] Follow up Appointment(s)/Referral(s): Harrison Rivera MD [STAFF PHYSICIAN] - 04/28/24 10:30 am (Appointment is with NATHANIEL Ewing. You still have an appointment in June [address] Rivera) Rafael Rodriguez MD [Primary Care Provider] - As Needed Dickson Elizalde MD [STAFF PHYSICIAN] - 04/30/24 2:00 pm Activity/Diet/Wound Care/Special Instructions: PATIENT EDUCATION MATERIAL Instructions following a heart rhythm device implant. 1. Keep dressing DRY for 5 DAYS. You may cover the area with Saran or Cling Wrap, prior to a shower. 2. The dressing will be removed in the Device Clinic at [facility]. Absorbable sutures were used to close the wound. 3. No lifting, pushing, or pulling more than 10 pounds for 2 weeks. 4. Avoid driving for 14 days. 5. Avoid activities such as golfing, swimming, weed whacking, lifting more than 10 pounds weight, bowling, gymnastics and weight training/lifting. (2 weeks restriction) 6. Activities such as wood chopping with an axe, pull-ups in the gymnasium, power lifting, arc-welding, being close to home induction cooktops will always be a problem. In case of any problems, please call [facility], [place], @ [phone], Attention: Device Clinic Discharge Disposition: HOME SELF-CARE
[2024-04-21] MEDS: LACTOBACILLUS ACIDOPHILUS/PECT 1 EACH CAPSULE PO SCH (08:17)
[2024-04-21] MEDS: INSULIN DETEMIR (LEVEMIR) 100 UNIT/ML SYR SQ SCH (08:17)
[2024-04-21] MEDS: FUROSEMIDE 20 MG TAB PO SCH (08:17)
[2024-04-21] MEDS: lisinopriL 5 MG TAB PO SCH (08:17)
[2024-04-21] MEDS: ATORVASTATIN 20 MG TAB PO SCH (08:17)
[2024-04-21] MEDS: METOPROLOL SUCCINATE (ER) 100 MG TAB.ER.24H PO SCH (08:17)
[2024-04-21] MEDS: CHOLECALCIFEROL 25 MCG (1000 IU) TABLET PO SCH (08:17)
--- NOTE | 2024-04-21 08:57 | XR ---
EXAMINATION TYPE: XR chest 1V DATE OF EXAM: 04/21/2024 COMPARISON: 04/20/2024 CLINICAL INDICATION: Male, 73 years old with history of post LV lead placement; TECHNIQUE: Single frontal view of the chest is obtained. FINDINGS: Left anterior chest wall AICD generator with right ventricular lead. Additional left ventricular lead from a lateral approach also redemonstrated. The previous small left apical pneumothorax is no longe r identified. Mild interstitial density persists. Mild cardiomegaly is similar. IMPRESSION: 1. Mild interstitial density/pulmonary vascular congestion is similar. 2. The previous small left apical pneumothorax is no longer seen. [facility], , 04/21/2024 8:54 AM
[2024-04-21] MEDS ORDERED: NON FORMULARY DRUG (Vitamin B Complex [Vitamin B Complex] 1 EACH Capsule) PO SCH (09:00)
[2024-04-21 09:32] VITALS: BP 112/53; PULSE 87
[2024-04-21] MEDS ORDERED: WARFARIN 7.5 MG TAB PO SCH (18:00)
== END 2024-04-21 09:14 | disposition home or self-care (01) | DRG 277 ==
LOC: 2ORMAIN 09:10 → 3SCARD 16:10
PROVIDERS: ADMIT Thoracic Surgery (Cardiothoracic Vascular Surgery); ATTEND Thoracic Surgery (Cardiothoracic Vascular Surgery)
PROC: 0JH609Z Insertion of Cardiac Resynchronization Defibrillator Pulse Generator into Chest Subcutaneous Tissue and Fascia, Open Approach (ICD-10-PCS; 2024-04-20)
PROC: 02HL3KZ Insertion of Defibrillator Lead into Left Ventricle, Percutaneous Approach (ICD-10-PCS; 2024-04-20)
PROC: 02PA4MZ Removal of Cardiac Lead from Heart, Percutaneous Endoscopic Approach (ICD-10-PCS; 2024-04-20)
PROC: 03HY32Z Insertion of Monitoring Device into Upper Artery, Percutaneous Approach (ICD-10-PCS; 2024-04-20)
PROC: 4A133B1 Monitoring of Arterial Pressure, Peripheral, Percutaneous Approach (ICD-10-PCS; 2024-04-20)
PROC: 4A133J1 Monitoring of Arterial Pulse, Peripheral, Percutaneous Approach (ICD-10-PCS; 2024-04-20)
PROC: 3E0T3BZ Introduction of Anesthetic Agent into Peripheral Nerves and Plexi, Percutaneous Approach (ICD-10-PCS; 2024-04-20)
PROC: 0JPT0PZ Removal of Cardiac Rhythm Related Device from Trunk Subcutaneous Tissue and Fascia, Open Approach (ICD-10-PCS; principal; 2024-04-20 11:15)
DX: I13.0 Hypertensive heart and chronic kidney disease with heart failure and stage 1 through stage 4 chronic kidney disease, or unspecified chronic kidney disease (principal); I48.19 Other persistent atrial fibrillation; I50.22 Chronic systolic (congestive) heart failure; I11.0 Hypertensive heart disease with heart failure; E11.9 Type 2 diabetes mellitus without complications; E78.5 Hyperlipidemia, unspecified; I25.10 Atherosclerotic heart disease of native coronary artery without angina pectoris; I25.2 Old myocardial infarction; I25.5 Ischemic cardiomyopathy; I44.7 Left bundle-branch block, unspecified; I50.9 Heart failure, unspecified; I77.6 Arteritis, unspecified; Z79.01 Long term (current) use of anticoagulants; Z79.4 Long term (current) use of insulin; Z87.891 Personal history of nicotine dependence; Z95.810 Presence of automatic (implantable) cardiac defibrillator; N18.9 Chronic kidney disease, unspecified
CPT/HCPCS: 64999; 71045; 80048; 85025; 85027; 85610; 86850; 86900; 86901; 94760